=== PATIENT | male | born 1985 | race Caucasian/White ===

== ENCOUNTER → 2017-10-08 16:08 | Outpatient (CLI) | payer OTHER, SELFPAY ==
[2017-10-08 17:44] LABS: Absolute Neutrophil Count 5.7 X10^3/uL (2.0-7.7); Basophil# 0.02 X10^3/uL; Basophil% 0.3 % (0-1); Eosinophil# 0.05 X10^3/uL; Eosinophils% 0.6 % (0-5); Hematocrit 40.5 % (40-54); Hemoglobin 13.7 g/dl (13.0-16.5); Lymphocyte % 19.4 % (19-41); Mean Corp Hgb Conc 33.8 g/gl (32-36); Mean Corpuscular Volume 85.6 fL (80-94); Mean Platelet Vol. 10.8 fl (6.2-12.0); Monocyte# 0.46 X10^3/uL; Neutrophil # 5.69 X10^3/uL (2.7-7.7); Neutrophil % 73.6 % (47-70); POSITIVE COUNT NO; POSITIVE DIFFERENTIAL NO; POSITIVE MORPHOLOGY NO; Platelet Count 253 K/mm3 (150-450); RBC Distribution Width SD 42.9 fl (35.1-43.9); Red Blood Count 4.73 M/mm3 (4.6-6.2); White Blood Count 7.7 K/mm3 (4.4-11.0)
[2017-10-08 18:21] LABS: AST(SGOT) 18 U/L (15-37); Alanine Aminotransfer ALT/SGPT 68 U/L (16-61); Albumin, Serum 3.9 g/dL (3.2-5.0); Alkaline Phosphatase 60 U/L (45-117); Anion Gap 9 (5-15); BUN 16 mg/dL (7-18); BUN/Creat Ratio 24.1 RATIO (10-20); CPK Total, Creatine Kinase 121 U/L (39-308); Calcium,Total 8.9 mg/dL (8.5-10.1); Chloride 104 mmol/L (98-107); Creatinine, Serum 0.66 mg/dL (0.70-1.30); EST Glomerular Filtration Rate 148 mL/min (>60); Est Glom Filt Rate - Afr Amer 179 mL/min (>60); Globulin 3.9 g/dL (2.2-4.2); Glucose 82 mg/dL (74-106); Potassium 3.8 mmol/L (3.5-5.1); Protein, Total 7.8 g/dL (6.4-8.2); Sodium Level 138 mmol/L (136-145)
== END ==
PROVIDERS: Family Provider Family Medicine; PCP Family Medicine; Visit Provider Internal Medicine Rheumatology
DX: M06.4 Inflammatory polyarthropathy (principal); Z79.899 Other long term (current) drug therapy; M33.90 Dermatopolymyositis, unspecified, organ involvement unspecified; M21.40 Flat foot [pes planus] (acquired), unspecified foot; K76.0 Fatty (change of) liver, not elsewhere classified; I10 Essential (primary) hypertension
CPT/HCPCS: 36415; 80053; 82085; 82550; 85025

== ENCOUNTER → 2017-10-22 15:58 | Outpatient (CLI) | payer OTHER, SELFPAY ==
[2017-10-22 17:40] LABS: Absolute Lymphocyte Count 1.68 X10^3/ul (0.83-4.51); Absolute Neutrophil Count 5.4 X10^3/uL (2.0-7.7); Basophil# 0.02 X10^3/uL; Basophil% 0.3 % (0-1); Eosinophil# 0.11 X10^3/uL; Eosinophils% 1.4 % (0-5); Hematocrit 40.4 % (40-54); Hemoglobin 13.3 g/dl (13.0-16.5); Lymphocyte # 1.68 X10^3/ul (4.0); Lymphocyte % 21.6 % (19-41); Mean Corp Hgb Conc 32.9 g/gl (32-36); Mean Corpuscular Hgb 28.6 pg (27.0-32.0); Mean Corpuscular Volume 86.9 fL (80-94); Mean Platelet Vol. 10.3 fl (6.2-12.0); Monocyte# 0.54 X10^3/uL; Monocyte% 6.9 % (0-10); Neutrophil # 5.42 X10^3/uL (2.7-7.7); Neutrophil % 69.5 % (47-70); Platelet Count 230 K/mm3 (150-450); RBC Distribution Width CV 13.4 % (11.6-14.6); RBC Distribution Width SD 41.9 fl (35.1-43.9); Red Blood Count 4.65 M/mm3 (4.6-6.2); White Blood Count 7.8 K/mm3 (4.4-11.0)
[2017-10-22 17:51] LABS: POSITIVE COUNT NO; POSITIVE DIFFERENTIAL NO; POSITIVE MORPHOLOGY NO
[2017-10-22 18:28] LABS: AST(SGOT) 26 U/L (15-37); Alanine Aminotransfer ALT/SGPT 61 U/L (16-61); Albumin, Serum 3.7 g/dL (3.2-5.0); Alkaline Phosphatase 75 U/L (45-117); Anion Gap 6 (5-15); BUN 16 mg/dL (7-18); BUN/Creat Ratio 22.6 RATIO (10-20); CPK Total, Creatine Kinase 123 U/L (39-308); Calcium,Total 8.9 mg/dL (8.5-10.1); Chloride 101 mmol/L (98-107); Creatinine, Serum 0.71 mg/dL (0.70-1.30); EST Glomerular Filtration Rate 137 mL/min (>60); Est Glom Filt Rate - Afr Amer 166 mL/min (>60); Globulin 3.8 g/dL (2.2-4.2); Glucose 75 mg/dL (74-106); Potassium 3.8 mmol/L (3.5-5.1); Protein, Total 7.5 g/dL (6.4-8.2); Sodium Level 136 mmol/L (136-145)
[2017-10-26 11:57] LABS: Aldolase 5.1 U/L (3.3-10.3)
== END ==
PROVIDERS: Family Provider Family Medicine; PCP Family Medicine; Visit Provider Internal Medicine Rheumatology
DX: M06.4 Inflammatory polyarthropathy (principal); Z79.899 Other long term (current) drug therapy; M33.90 Dermatopolymyositis, unspecified, organ involvement unspecified; M21.40 Flat foot [pes planus] (acquired), unspecified foot; K76.0 Fatty (change of) liver, not elsewhere classified; I10 Essential (primary) hypertension
CPT/HCPCS: 36415; 80053; 82085; 82550; 85025

== ENCOUNTER → 2018-01-14 15:58 | Outpatient (CLI) | payer OTHER, SELFPAY ==
[2018-01-14 17:28] LABS: Absolute Lymphocyte Count 1.86 X10^3/ul (0.83-4.51); Absolute Neutrophil Count 5.1 X10^3/uL (2.0-7.7); Basophil# 0.02 X10^3/uL; Basophil% 0.3 % (0-1); Eosinophil# 0.11 X10^3/uL; Eosinophils% 1.4 % (0-5); Hematocrit 40.8 % (40-54); Hemoglobin 13.8 g/dl (13.0-16.5); Lymphocyte # 1.86 X10^3/ul (4.0); Lymphocyte % 24.4 % (19-41); Mean Corp Hgb Conc 33.8 g/gl (32-36); Mean Corpuscular Hgb 28.7 pg (27.0-32.0); Mean Corpuscular Volume 84.8 fL (80-94); Mean Platelet Vol. 10.3 fl (6.2-12.0); Monocyte# 0.47 X10^3/uL; Monocyte% 6.2 % (0-10); Neutrophil # 5.14 X10^3/uL (2.7-7.7); Neutrophil % 67.3 % (47-70); Platelet Count 255 K/mm3 (150-450); RBC Distribution Width CV 14.1 % (11.6-14.6); RBC Distribution Width SD 43.6 fl (35.1-43.9); Red Blood Count 4.81 M/mm3 (4.6-6.2); White Blood Count 7.6 K/mm3 (4.4-11.0)
[2018-01-14 17:29] LABS: POSITIVE COUNT NO; POSITIVE DIFFERENTIAL NO; POSITIVE MORPHOLOGY NO
[2018-01-14 17:56] LABS: ALB/GLOB Ratio 0.8 RATIO (0.9-2.4); AST(SGOT) 22 U/L (15-37); Alanine Aminotransfer ALT/SGPT 50 U/L (16-61); Albumin, Serum 3.8 g/dL (3.2-5.0); Alkaline Phosphatase 94 U/L (45-117); Anion Gap 8 (5-15); BUN 24 mg/dL (7-18); BUN/Creat Ratio 29.9 RATIO (10-20); CPK Total, Creatine Kinase 142 U/L (39-308); Calcium,Total 9.1 mg/dL (8.5-10.1); Chloride 105 mmol/L (98-107); EST Glomerular Filtration Rate 119 mL/min (>60); Est Glom Filt Rate - Afr Amer 144 mL/min (>60); Globulin 4.6 g/dL (2.2-4.2); Glucose 76 mg/dL (74-106); Potassium 3.9 mmol/L (3.5-5.1); Protein, Total 8.4 g/dL (6.4-8.2); Sodium Level 141 mmol/L (136-145)
[2018-01-18 15:12] LABS: Aldolase 5.5 U/L (3.3-10.3)
== END ==
PROVIDERS: Family Provider Family Medicine; PCP Family Medicine; Visit Provider Internal Medicine Rheumatology
DX: M06.4 Inflammatory polyarthropathy (principal); Z79.899 Other long term (current) drug therapy; M33.90 Dermatopolymyositis, unspecified, organ involvement unspecified; M21.40 Flat foot [pes planus] (acquired), unspecified foot; K76.0 Fatty (change of) liver, not elsewhere classified; I10 Essential (primary) hypertension
CPT/HCPCS: 36415; 80053; 82085; 82550; 85025

== ENCOUNTER → 2018-01-19 15:45 | Outpatient (CLI) | payer OTHER, SELFPAY ==
[2018-01-21 16:10] LABS: SJOGREN'S Anti-SS-A test < 0.2 AI (0.0-0.9); SJOGREN'S Anti-SS-B test < 0.2 AI (0.0-0.9)
[2018-01-22 14:21] LABS: Anti-Mitochondrial AB <20.0 Units (0.0-20.0)
== END ==
PROVIDERS: Family Provider Family Medicine; PCP Family Medicine; Visit Provider Internal Medicine Rheumatology
DX: M06.4 Inflammatory polyarthropathy (principal); Z79.899 Other long term (current) drug therapy; M33.90 Dermatopolymyositis, unspecified, organ involvement unspecified; M21.40 Flat foot [pes planus] (acquired), unspecified foot; K76.0 Fatty (change of) liver, not elsewhere classified; I10 Essential (primary) hypertension
CPT/HCPCS: 36415; 83516; 86235

== ENCOUNTER → 2018-02-24 15:47 | Outpatient (CLI) | payer OTHER, SELFPAY ==
[2018-02-24 17:40] LABS: Absolute Lymphocyte Count 1.92 X10^3/ul (0.83-4.51); Absolute Neutrophil Count 5.7 X10^3/uL (2.0-7.7); Basophil# 0.04 X10^3/uL; Basophil% 0.5 % (0-1); Eosinophil# 0.11 X10^3/uL; Eosinophils% 1.3 % (0-5); Hematocrit 42.8 % (40-54); Hemoglobin 14.4 g/dl (13.0-16.5); Lymphocyte # 1.92 X10^3/ul (4.0); Mean Corp Hgb Conc 33.6 g/gl (32-36); Mean Corpuscular Hgb 28.9 pg (27.0-32.0); Mean Corpuscular Volume 85.9 fL (80-94); Mean Platelet Vol. 10.3 fl (6.2-12.0); Monocyte# 0.55 X10^3/uL; Monocyte% 6.6 % (0-10); Neutrophil # 5.66 X10^3/uL (2.7-7.7); Neutrophil % 67.9 % (47-70); Platelet Count 268 K/mm3 (150-450); RBC Distribution Width CV 14.2 % (11.6-14.6); RBC Distribution Width SD 43.5 fl (35.1-43.9); Red Blood Count 4.98 M/mm3 (4.6-6.2); White Blood Count 8.3 K/mm3 (4.4-11.0)
[2018-02-24 17:42] LABS: Differential Indicated SCAN CRITERIA MET; POSITIVE COUNT NO; POSITIVE DIFFERENTIAL NO; POSITIVE MORPHOLOGY YES
[2018-02-24 17:53] LABS: AST(SGOT) 26 U/L (15-37); Alanine Aminotransfer ALT/SGPT 64 U/L (16-61); Albumin, Serum 4.1 g/dL (3.2-5.0); Alkaline Phosphatase 68 U/L (45-117); Anion Gap 9 (5-15); BUN 21 mg/dL (7-18); BUN/Creat Ratio 26.8 RATIO (10-20); CPK Total, Creatine Kinase 140 U/L (39-308); Calcium,Total 9.1 mg/dL (8.5-10.1); Chloride 104 mmol/L (98-107); Creatinine, Serum 0.78 mg/dL (0.70-1.30); EST Glomerular Filtration Rate 122 mL/min (>60); Est Glom Filt Rate - Afr Amer 148 mL/min (>60); Globulin 4.3 g/dL (2.2-4.2); Glucose 82 mg/dL (74-106); Potassium 4.2 mmol/L (3.5-5.1); Protein, Total 8.4 g/dL (6.4-8.2); Sodium Level 139 mmol/L (136-145)
[2018-02-24 18:16] LABS: Atypical Lymphocyte RARE %
[2018-02-28 15:29] LABS: Aldolase 4.7 U/L (3.3-10.3)
== END ==
PROVIDERS: Family Provider Family Medicine; PCP Family Medicine; Visit Provider Internal Medicine Rheumatology
DX: M06.4 Inflammatory polyarthropathy (principal); Z79.899 Other long term (current) drug therapy; M33.90 Dermatopolymyositis, unspecified, organ involvement unspecified; M21.40 Flat foot [pes planus] (acquired), unspecified foot; K76.0 Fatty (change of) liver, not elsewhere classified; I10 Essential (primary) hypertension
CPT/HCPCS: 36415; 80053; 82085; 82550; 85025

== ENCOUNTER → 2018-03-31 16:12 | Outpatient (CLI) | payer OTHER, SELFPAY ==
[2018-03-31 17:45] LABS: Absolute Lymphocyte Count 1.79 X10^3/ul (0.83-4.51); Absolute Neutrophil Count 4.3 X10^3/uL (2.0-7.7); Basophil# 0.01 X10^3/uL; Basophil% 0.2 % (0-1); Eosinophil# 0.11 X10^3/uL; Eosinophils% 1.7 % (0-5); Hemoglobin 13.7 g/dl (13.0-16.5); Lymphocyte # 1.79 X10^3/ul (4.0); Lymphocyte % 26.9 % (19-41); Mean Corp Hgb Conc 33.4 g/gl (32-36); Mean Corpuscular Hgb 28.3 pg (27.0-32.0); Mean Corpuscular Volume 84.7 fL (80-94); Mean Platelet Vol. 10.6 fl (6.2-12.0); Monocyte# 0.42 X10^3/uL; Monocyte% 6.3 % (0-10); Neutrophil % 64.6 % (47-70); Platelet Count 250 K/mm3 (150-450); RBC Distribution Width CV 13.5 % (11.6-14.6); RBC Distribution Width SD 41.5 fl (35.1-43.9); Red Blood Count 4.84 M/mm3 (4.6-6.2); White Blood Count 6.7 K/mm3 (4.4-11.0)
[2018-03-31 17:54] LABS: ALB/GLOB Ratio 0.8 RATIO (0.9-2.4); AST(SGOT) 25 U/L (15-37); Alanine Aminotransfer ALT/SGPT 54 U/L (16-61); Albumin, Serum 3.6 g/dL (3.2-5.0); Alkaline Phosphatase 68 U/L (45-117); Anion Gap 6 (5-15); BUN 21 mg/dL (7-18); BUN/Creat Ratio 26.1 RATIO (10-20); Calcium,Total 9.1 mg/dL (8.5-10.1); Chloride 105 mmol/L (98-107); EST Glomerular Filtration Rate 118 mL/min (>60); Est Glom Filt Rate - Afr Amer 143 mL/min (>60); Globulin 4.6 g/dL (2.2-4.2); Glucose 73 mg/dL (74-106); Potassium 3.9 mmol/L (3.5-5.1); Protein, Total 8.2 g/dL (6.4-8.2); Sodium Level 139 mmol/L (136-145)
[2018-03-31 18:01] LABS: POSITIVE COUNT NO; POSITIVE DIFFERENTIAL NO; POSITIVE MORPHOLOGY NO
== END ==
PROVIDERS: Family Provider Family Medicine; PCP Family Medicine; Visit Provider Internal Medicine Rheumatology
DX: M06.4 Inflammatory polyarthropathy (principal); Z79.899 Other long term (current) drug therapy; M33.90 Dermatopolymyositis, unspecified, organ involvement unspecified; M21.40 Flat foot [pes planus] (acquired), unspecified foot; K76.0 Fatty (change of) liver, not elsewhere classified; I10 Essential (primary) hypertension
CPT/HCPCS: 36415; 80053; 85025

== ENCOUNTER → 2018-06-29 15:50 | Outpatient (CLI) | payer OTHER, SELFPAY ==
[2018-06-29 17:35] LABS: Absolute Lymphocyte Count 1.83 X10^3/ul (0.83-4.51); Absolute Neutrophil Count 5.1 X10^3/uL (2.0-7.7); Basophil# 0.02 X10^3/uL; Basophil% 0.3 % (0-1); Eosinophil# 0.08 X10^3/uL; Hematocrit 42.1 % (40-54); Hemoglobin 14.3 g/dl (13.0-16.5); Lymphocyte # 1.83 X10^3/ul (4.0); Lymphocyte % 23.8 % (19-41); Mean Corpuscular Hgb 28.5 pg (27.0-32.0); Mean Corpuscular Volume 83.9 fL (80-94); Mean Platelet Vol. 10.7 fl (6.2-12.0); Monocyte# 0.64 X10^3/uL; Monocyte% 8.3 % (0-10); Neutrophil % 66.5 % (47-70); Platelet Count 263 K/mm3 (150-450); RBC Distribution Width CV 13.8 % (11.6-14.6); RBC Distribution Width SD 41.5 fl (35.1-43.9); Red Blood Count 5.02 M/mm3 (4.6-6.2); White Blood Count 7.7 K/mm3 (4.4-11.0)
[2018-06-29 18:00] LABS: POSITIVE COUNT NO; POSITIVE DIFFERENTIAL NO; POSITIVE MORPHOLOGY NO
[2018-06-29 18:05] LABS: ALB/GLOB Ratio 0.9 RATIO (0.9-2.4); AST(SGOT) 28 U/L (15-37); Alanine Aminotransfer ALT/SGPT 52 U/L (16-61); Albumin, Serum 4.1 g/dL (3.2-5.0); Alkaline Phosphatase 86 U/L (45-117); Anion Gap 9 (5-15); BUN 15 mg/dL (7-18); BUN/Creat Ratio 16.2 RATIO (10-20); CPK Total, Creatine Kinase 148 U/L (39-308); Calcium,Total 9.3 mg/dL (8.5-10.1); Chloride 99 mmol/L (98-107); Creatinine, Serum 0.93 mg/dL (0.70-1.30); EST Glomerular Filtration Rate 100 mL/min (>60); Est Glom Filt Rate - Afr Amer 121 mL/min (>60); Globulin 4.6 g/dL (2.2-4.2); Glucose 70 mg/dL (74-106); Potassium 4.2 mmol/L (3.5-5.1); Protein, Total 8.7 g/dL (6.4-8.2); Sodium Level 136 mmol/L (136-145)
== END ==
PROVIDERS: Family Provider Family Medicine; PCP Family Medicine; Referring Provider Internal Medicine Rheumatology; Visit Provider Internal Medicine Rheumatology
DX: M06.4 Inflammatory polyarthropathy (principal); Z79.899 Other long term (current) drug therapy; M33.90 Dermatopolymyositis, unspecified, organ involvement unspecified; M21.40 Flat foot [pes planus] (acquired), unspecified foot; K76.0 Fatty (change of) liver, not elsewhere classified; I10 Essential (primary) hypertension
CPT/HCPCS: 36415; 80053; 82550; 85025

== ENCOUNTER → 2018-09-30 13:03 | Outpatient (CLI) | payer OTHER, SELFPAY ==
[2018-09-30 13:53] LABS: Absolute Lymphocyte Count 1.23 X10^3/ul (0.83-4.51); Basophil# 0.01 X10^3/uL; Basophil% 0.1 % (0-1); Eosinophil# 0.09 X10^3/uL; Eosinophils% 1.3 % (0-5); Hematocrit 42.1 % (40-54); Hemoglobin 13.8 g/dl (13.0-16.5); Lymphocyte # 1.23 X10^3/ul (4.0); Lymphocyte % 18.3 % (19-41); Mean Corp Hgb Conc 32.8 g/gl (32-36); Mean Corpuscular Hgb 28.2 pg (27.0-32.0); Mean Corpuscular Volume 86.1 fL (80-94); Mean Platelet Vol. 10.9 fl (6.2-12.0); Monocyte# 0.35 X10^3/uL; Monocyte% 5.2 % (0-10); Neutrophil # 5.01 X10^3/uL (2.7-7.7); Neutrophil % 74.8 % (47-70); Platelet Count 198 K/mm3 (150-450); RBC Distribution Width CV 14.1 % (11.6-14.6); RBC Distribution Width SD 43.8 fl (35.1-43.9); Red Blood Count 4.89 M/mm3 (4.6-6.2); White Blood Count 6.7 K/mm3 (4.4-11.0)
[2018-09-30 13:54] LABS: POSITIVE COUNT NO; POSITIVE DIFFERENTIAL NO; POSITIVE MORPHOLOGY NO
[2018-09-30 14:14] LABS: AST(SGOT) 20 U/L (15-37); Alanine Aminotransfer ALT/SGPT 44 U/L (16-61); Albumin, Serum 3.8 g/dL (3.2-5.0); Alkaline Phosphatase 66 U/L (45-117); Anion Gap 10 (5-15); BUN 21 mg/dL (7-18); BUN/Creat Ratio 29.1 RATIO (10-20); CPK Total, Creatine Kinase 135 U/L (39-308); Calcium,Total 8.7 mg/dL (8.5-10.1); Chloride 109 mmol/L (98-107); Creatinine, Serum 0.72 mg/dL (0.70-1.30); EST Glomerular Filtration Rate 134 mL/min (>60); Est Glom Filt Rate - Afr Amer 162 mL/min (>60); Globulin 3.8 g/dL (2.2-4.2); Glucose 85 mg/dL (74-106); Potassium 4.3 mmol/L (3.5-5.1); Protein, Total 7.6 g/dL (6.4-8.2); Sodium Level 143 mmol/L (136-145)
== END ==
PROVIDERS: Family Provider Family Medicine; PCP Family Medicine; Referring Provider Internal Medicine Rheumatology; Visit Provider Internal Medicine Rheumatology
DX: M06.4 Inflammatory polyarthropathy (principal); Z79.899 Other long term (current) drug therapy; M33.90 Dermatopolymyositis, unspecified, organ involvement unspecified; M21.40 Flat foot [pes planus] (acquired), unspecified foot; K76.0 Fatty (change of) liver, not elsewhere classified; I10 Essential (primary) hypertension
CPT/HCPCS: 36415; 80053; 82550; 85025

== ENCOUNTER → 2019-01-25 | Outpatient (CLI) | payer OTHER, SELFPAY ==
[2019-01-25 10:26] LABS: Absolute Lymphocyte Count 2.45 X10^3/ul (0.83-4.51); Absolute Neutrophil Count 5.9 X10^3/uL (2.0-7.7); Basophil# 0.01 X10^3/uL; Basophil% 0.1 % (0-1); Eosinophil# 0.14 X10^3/uL; Eosinophils% 1.5 % (0-5); Hematocrit 40.8 % (40-54); Hemoglobin 13.6 g/dl (13.0-16.5); Lymphocyte # 2.45 X10^3/ul (4.0); Mean Corp Hgb Conc 33.3 g/gl (32-36); Mean Corpuscular Hgb 27.7 pg (27.0-32.0); Mean Corpuscular Volume 83.1 fL (80-94); Monocyte% 5.5 % (0-10); Neutrophil # 5.94 X10^3/uL (2.7-7.7); Neutrophil % 65.6 % (47-70); Platelet Count 253 K/mm3 (150-450); RBC Distribution Width CV 13.8 % (11.6-14.6); RBC Distribution Width SD 40.9 fl (35.1-43.9); Red Blood Count 4.91 M/mm3 (4.6-6.2); White Blood Count 9.1 K/mm3 (4.4-11.0)
[2019-01-25 10:27] LABS: POSITIVE COUNT NO; POSITIVE DIFFERENTIAL NO; POSITIVE MORPHOLOGY NO
[2019-01-25 10:50] LABS: AST(SGOT) 22 U/L (15-37); Alanine Aminotransfer ALT/SGPT 39 U/L (16-61); Alkaline Phosphatase 77 U/L (45-117); Anion Gap 6 (5-15); BUN 20 mg/dL (7-18); BUN/Creat Ratio 24.4 RATIO (10-20); CPK Total, Creatine Kinase 202 U/L (39-308); Calcium,Total 9.2 mg/dL (8.5-10.1); Chloride 103 mmol/L (98-107); Creatinine, Serum 0.82 mg/dL (0.70-1.30); EST Glomerular Filtration Rate 115 mL/min (>60); Est Glom Filt Rate - Afr Amer 139 mL/min (>60); Globulin 4.2 g/dL (2.2-4.2); Glucose 66 mg/dL (74-106); Potassium 3.6 mmol/L (3.5-5.1); Protein, Total 8.2 g/dL (6.4-8.2); Sodium Level 136 mmol/L (136-145)
== END | disposition home or self-care (01) ==
LOC: MTLAB 07:06
PROVIDERS: Family Provider Family Medicine; PCP Family Medicine; Referring Provider Internal Medicine Rheumatology; Visit Provider Internal Medicine Rheumatology
DX: M06.4 Inflammatory polyarthropathy (principal); Z79.899 Other long term (current) drug therapy; M33.90 Dermatopolymyositis, unspecified, organ involvement unspecified; M21.40 Flat foot [pes planus] (acquired), unspecified foot; K76.0 Fatty (change of) liver, not elsewhere classified; I10 Essential (primary) hypertension
CPT/HCPCS: 36415; 80053; 82550; 85025

== ENCOUNTER → 2019-05-25 16:12 | Outpatient (CLI) | payer OTHER, SELFPAY ==
[2019-05-25 17:27] LABS: Absolute Lymphocyte Count 1.84 X10^3/uL (0.83-4.51); Absolute Neutrophil Count 4.6 X10^3/uL (2.0-7.7); Basophil# 0.03 X10^3/uL; Basophil% 0.4 % (0-1); Eosinophil# 0.12 X10^3/uL; Eosinophils% 1.7 % (0-5); Hemoglobin 13.6 g/dL (13.0-16.5); Lymphocyte # 1.84 X10^3/ul (4.0); Mean Corp Hgb Conc 32.4 g/dL (32-36); Mean Corpuscular Hgb 27.7 pg (27.0-32.0); Mean Corpuscular Volume 85.5 fL (80-94); Mean Platelet Vol. 10.7 fl (6.2-12.0); Monocyte# 0.48 X10^3/uL; Monocyte% 6.8 % (0-10); NRBC Flagged by Analyzer 0 % (0-5); Neutrophil # 4.59 X10^3/uL (2.7-7.7); Neutrophil % 64.8 % (47-70); Platelet Count 199 K/mm3 (150-450); RBC Distribution Width SD 43.3 fl (35.1-43.9); Red Blood Count 4.91 M/mm3 (4.6-6.2); White Blood Count 7.1 K/mm3 (4.4-11.0)
[2019-05-25 17:41] LABS: AST(SGOT) 18 U/L (15-37); Alanine Aminotransfer ALT/SGPT 44 U/L (16-61); Albumin, Serum 3.9 g/dL (3.2-5.0); Alkaline Phosphatase 60 U/L (45-117); Anion Gap 7 (5-15); BUN 16 mg/dL (7-18); BUN/Creat Ratio 20.9 RATIO (10-20); CPK Total, Creatine Kinase 120 U/L (39-308); Calcium,Total 8.8 mg/dL (8.5-10.1); Chloride 106 mmol/L (98-107); Creatinine, Serum 0.77 mg/dL (0.70-1.30); EST Glomerular Filtration Rate 124 mL/min (>60); Est Glom Filt Rate - Afr Amer 150 mL/min (>60); Globulin 3.8 g/dL (2.2-4.2); Glucose 93 mg/dL (74-106); Potassium 3.6 mmol/L (3.5-5.1); Protein, Total 7.7 g/dL (6.4-8.2); Sodium Level 140 mmol/L (136-145)
== END ==
PROVIDERS: Family Provider Family Medicine; PCP Family Medicine; Referring Provider Internal Medicine Rheumatology; Visit Provider Internal Medicine Rheumatology
DX: M06.4 Inflammatory polyarthropathy (principal); Z79.899 Other long term (current) drug therapy; M33.90 Dermatopolymyositis, unspecified, organ involvement unspecified; M21.40 Flat foot [pes planus] (acquired), unspecified foot; K76.0 Fatty (change of) liver, not elsewhere classified; I10 Essential (primary) hypertension
CPT/HCPCS: 36415; 80053; 82550; 85025

== ENCOUNTER → 2019-09-01 10:30 | Outpatient (CLI) | payer OTHER, SELFPAY ==
[2019-09-01 12:41] LABS: Absolute Lymphocyte Count 2.87 X10^3/uL (0.83-4.51); Absolute Neutrophil Count 7.4 X10^3/uL (2.0-7.7); Basophil# 0.04 X10^3/uL; Basophil% 0.4 % (0-1); Eosinophil# 0.11 X10^3/uL; Hematocrit 42.9 % (40-54); Hemoglobin 14.1 g/dL (13.0-16.5); Lymphocyte # 2.87 X10^3/ul (4.0); Lymphocyte % 25.7 % (19-41); Mean Corp Hgb Conc 32.9 g/dL (32-36); Mean Corpuscular Hgb 28.1 pg (27.0-32.0); Mean Corpuscular Volume 85.6 fL (80-94); Mean Platelet Vol. 10.3 fl (6.2-12.0); Monocyte# 0.68 X10^3/uL; Monocyte% 6.1 % (0-10); NRBC Flagged by Analyzer 0 % (0-5); Neutrophil % 66.2 % (47-70); Platelet Count 273 K/mm3 (150-450); RBC Distribution Width CV 13.6 % (11.6-14.6); RBC Distribution Width SD 41.9 fl (35.1-43.9); Red Blood Count 5.01 M/mm3 (4.6-6.2); White Blood Count 11.2 K/mm3 (4.4-11.0)
[2019-09-01 12:58] LABS: ALB/GLOB Ratio 0.9 RATIO (0.9-2.4); AST(SGOT) 20 U/L (15-37); Alanine Aminotransfer ALT/SGPT 55 U/L (16-61); Albumin, Serum 4.1 g/dL (3.2-5.0); Alkaline Phosphatase 76 U/L (45-117); Anion Gap 6 (5-15); BUN 25 mg/dL (7-18); BUN/Creat Ratio 28.8 RATIO (10-20); CPK Total, Creatine Kinase 118 U/L (39-308); Calcium,Total 9.5 mg/dL (8.5-10.1); Chloride 109 mmol/L (98-107); Creatinine, Serum 0.87 mg/dL (0.70-1.30); EST Glomerular Filtration Rate 107 mL/min (>60); Est Glom Filt Rate - Afr Amer 130 mL/min (>60); Globulin 4.5 g/dL (2.2-4.2); Glucose 81 mg/dL (74-106); Potassium 3.8 mmol/L (3.5-5.1); Protein, Total 8.6 g/dL (6.4-8.2); Sodium Level 139 mmol/L (136-145)
== END ==
PROVIDERS: Family Provider Family Medicine; PCP Family Medicine; Referring Provider Internal Medicine Rheumatology; Visit Provider Internal Medicine Rheumatology
DX: I10 Essential (primary) hypertension (principal); M06.4 Inflammatory polyarthropathy; M33.90 Dermatopolymyositis, unspecified, organ involvement unspecified; M21.40 Flat foot [pes planus] (acquired), unspecified foot; K76.0 Fatty (change of) liver, not elsewhere classified; L40.59 Other psoriatic arthropathy; Z79.899 Other long term (current) drug therapy
CPT/HCPCS: 36415; 80053; 82550; 85025

== ENCOUNTER → 2019-11-27 07:06 | Outpatient (CLI) | payer OTHER, SELFPAY ==
[2019-11-27 09:51] LABS: Absolute Lymphocyte Count 2.96 X10^3/uL (0.83-4.51); Absolute Neutrophil Count 5.9 X10^3/uL (2.0-7.7); Basophil# 0.04 X10^3/uL; Basophil% 0.4 % (0-1); Eosinophil# 0.12 X10^3/uL; Eosinophils% 1.3 % (0-5); Hematocrit 42.3 % (40-54); Lymphocyte # 2.96 X10^3/ul (4.0); Mean Corp Hgb Conc 33.1 g/dL (32-36); Mean Corpuscular Hgb 27.9 pg (27.0-32.0); Mean Corpuscular Volume 84.3 fL (80-94); Mean Platelet Vol. 10.7 fl (6.2-12.0); Monocyte# 0.54 X10^3/uL; Monocyte% 5.6 % (0-10); NRBC Flagged by Analyzer 0 % (0-5); Neutrophil # 5.86 X10^3/uL (2.7-7.7); Neutrophil % 61.3 % (47-70); Platelet Count 255 K/mm3 (150-450); RBC Distribution Width CV 13.3 % (11.6-14.6); RBC Distribution Width SD 40.8 fl (35.1-43.9); Red Blood Count 5.02 M/mm3 (4.6-6.2); White Blood Count 9.6 K/mm3 (4.4-11.0)
[2019-11-27 10:15] LABS: ALB/GLOB Ratio 0.9 RATIO (0.9-2.4); AST(SGOT) 36 U/L (15-37); Alanine Aminotransfer ALT/SGPT 85 U/L (16-61); Albumin, Serum 3.8 g/dL (3.2-5.0); Alkaline Phosphatase 76 U/L (45-117); Anion Gap 9 (5-15); BUN 15 mg/dL (7-18); BUN/Creat Ratio 18.2 RATIO (10-20); CPK Total, Creatine Kinase 126 U/L (39-308); Calcium,Total 8.9 mg/dL (8.5-10.1); Chloride 103 mmol/L (98-107); Creatinine, Serum 0.82 mg/dL (0.70-1.30); EST Glomerular Filtration Rate 114 mL/min (>60); Est Glom Filt Rate - Afr Amer 138 mL/min (>60); Globulin 4.3 g/dL (2.2-4.2); Glucose 71 mg/dL (74-106); Potassium 3.6 mmol/L (3.5-5.1); Protein, Total 8.1 g/dL (6.4-8.2); Sodium Level 137 mmol/L (136-145)
== END ==
PROVIDERS: PCP Family Medicine; Referring Provider Internal Medicine Rheumatology; Visit Provider Internal Medicine Rheumatology
DX: M06.4 Inflammatory polyarthropathy (principal); Z79.899 Other long term (current) drug therapy; M33.90 Dermatopolymyositis, unspecified, organ involvement unspecified; M21.40 Flat foot [pes planus] (acquired), unspecified foot; K76.0 Fatty (change of) liver, not elsewhere classified; I10 Essential (primary) hypertension; L40.59 Other psoriatic arthropathy
CPT/HCPCS: 36415; 80053; 82550; 85025

== ENCOUNTER → 2020-01-17 07:20 | Outpatient (CLI) | payer OTHER, SELFPAY ==
[2020-01-17 10:05] LABS: Absolute Lymphocyte Count 2.76 X10^3/uL (0.83-4.51); Absolute Neutrophil Count 6.1 X10^3/uL (2.0-7.7); Basophil# 0.04 X10^3/uL; Basophil% 0.4 % (0-1); Eosinophil# 0.14 X10^3/uL; Eosinophils% 1.4 % (0-5); Hematocrit 41.8 % (40-54); Hemoglobin 13.7 g/dL (13.0-16.5); Lymphocyte # 2.76 X10^3/ul (4.0); Lymphocyte % 28.1 % (19-41); Mean Corp Hgb Conc 32.8 g/dL (32-36); Mean Corpuscular Hgb 28.1 pg (27.0-32.0); Mean Corpuscular Volume 85.8 fL (80-94); Mean Platelet Vol. 10.2 fl (6.2-12.0); Monocyte% 7.1 % (0-10); NRBC Flagged by Analyzer 0 % (0-5); Neutrophil # 6.14 X10^3/uL (2.7-7.7); Neutrophil % 62.6 % (47-70); Platelet Count 281 K/mm3 (150-450); RBC Distribution Width CV 13.3 % (11.6-14.6); Red Blood Count 4.87 M/mm3 (4.6-6.2); White Blood Count 9.8 K/mm3 (4.4-11.0)
[2020-01-17 10:21] LABS: ALB/GLOB Ratio 0.9 RATIO (0.9-2.4); AST(SGOT) 27 U/L (15-37); Alanine Aminotransfer ALT/SGPT 77 U/L (16-61); Albumin, Serum 3.8 g/dL (3.2-5.0); Alkaline Phosphatase 78 U/L (45-117); Anion Gap 8 (5-15); BUN 21 mg/dL (7-18); BUN/Creat Ratio 24.2 RATIO (10-20); CPK Total, Creatine Kinase 179 U/L (39-308); Calcium,Total 9.1 mg/dL (8.5-10.1); Chloride 107 mmol/L (98-107); Creatinine, Serum 0.87 mg/dL (0.70-1.30); EST Glomerular Filtration Rate 107 mL/min (>60); Est Glom Filt Rate - Afr Amer 130 mL/min (>60); Globulin 4.3 g/dL (2.2-4.2); Glucose 80 mg/dL (74-106); Potassium 3.9 mmol/L (3.5-5.1); Protein, Total 8.1 g/dL (6.4-8.2); Sodium Level 141 mmol/L (136-145)
== END ==
PROVIDERS: PCP Family Medicine; Referring Provider Internal Medicine Rheumatology; Visit Provider Internal Medicine Rheumatology
DX: M06.4 Inflammatory polyarthropathy (principal); Z79.899 Other long term (current) drug therapy; M33.90 Dermatopolymyositis, unspecified, organ involvement unspecified; M21.40 Flat foot [pes planus] (acquired), unspecified foot; K76.0 Fatty (change of) liver, not elsewhere classified; I10 Essential (primary) hypertension; L40.59 Other psoriatic arthropathy
CPT/HCPCS: 36415; 80053; 82550; 85025

== ENCOUNTER → 2020-02-09 07:01 | Outpatient (CLI) | payer OTHER, SELFPAY ==
[2020-02-09 10:08] LABS: Absolute Lymphocyte Count 2.45 X10^3/uL (0.83-4.51); Absolute Neutrophil Count 5.7 X10^3/uL (2.0-7.7); Basophil# 0.03 X10^3/uL; Basophil% 0.3 % (0-1); Eosinophil# 0.17 X10^3/uL; Eosinophils% 1.9 % (0-5); Hematocrit 41.3 % (40-54); Hemoglobin 13.4 g/dL (13.0-16.5); Lymphocyte # 2.45 X10^3/ul (4.0); Lymphocyte % 27.7 % (19-41); Mean Corp Hgb Conc 32.4 g/dL (32-36); Mean Corpuscular Hgb 28.3 pg (27.0-32.0); Mean Corpuscular Volume 87.1 fL (80-94); Mean Platelet Vol. 10.9 fl (6.2-12.0); Monocyte# 0.42 X10^3/uL; Monocyte% 4.7 % (0-10); NRBC Flagged by Analyzer 0 % (0-5); Neutrophil # 5.73 X10^3/uL (2.7-7.7); Neutrophil % 64.7 % (47-70); Platelet Count 246 K/mm3 (150-450); RBC Distribution Width CV 13.2 % (11.6-14.6); RBC Distribution Width SD 41.1 fl (35.1-43.9); Red Blood Count 4.74 M/mm3 (4.6-6.2); White Blood Count 8.9 K/mm3 (4.4-11.0)
[2020-02-09 10:37] LABS: ALB/GLOB Ratio 0.8 RATIO (0.9-2.4); AST(SGOT) 26 U/L (15-37); Alanine Aminotransfer ALT/SGPT 85 U/L (16-61); Albumin, Serum 3.6 g/dL (3.2-5.0); Alkaline Phosphatase 76 U/L (45-117); Anion Gap 6 (5-15); BUN 18 mg/dL (7-18); BUN/Creat Ratio 22.9 RATIO (10-20); CPK Total, Creatine Kinase 151 U/L (39-308); Chloride 106 mmol/L (98-107); Creatinine, Serum 0.79 mg/dL (0.70-1.30); EST Glomerular Filtration Rate 120 mL/min (>60); Est Glom Filt Rate - Afr Amer 145 mL/min (>60); Globulin 4.3 g/dL (2.2-4.2); Glucose 73 mg/dL (74-106); Potassium 3.9 mmol/L (3.5-5.1); Protein, Total 7.9 g/dL (6.4-8.2); Sodium Level 139 mmol/L (136-145)
== END ==
PROVIDERS: PCP Family Medicine; Referring Provider Internal Medicine Rheumatology; Visit Provider Internal Medicine Rheumatology
DX: M06.4 Inflammatory polyarthropathy (principal); M33.90 Dermatopolymyositis, unspecified, organ involvement unspecified; M21.40 Flat foot [pes planus] (acquired), unspecified foot; K76.0 Fatty (change of) liver, not elsewhere classified; I10 Essential (primary) hypertension; L40.59 Other psoriatic arthropathy; Z79.899 Other long term (current) drug therapy
CPT/HCPCS: 36415; 80053; 82550; 85025

== ENCOUNTER → 2020-03-11 07:07 | Outpatient (CLI) | payer OTHER, SELFPAY ==
[2020-03-11 10:55] LABS: ALB/GLOB Ratio 0.9 RATIO (0.9-2.4); AST(SGOT) 31 U/L (15-37); Alanine Aminotransfer ALT/SGPT 75 U/L (16-61); Albumin, Serum 3.8 g/dL (3.2-5.0); Alkaline Phosphatase 76 U/L (45-117); Anion Gap 6 (5-15); BUN 15 mg/dL (7-18); BUN/Creat Ratio 18.1 RATIO (10-20); CPK Total, Creatine Kinase 158 U/L (39-308); Calcium,Total 8.9 mg/dL (8.5-10.1); Chloride 108 mmol/L (98-107); Creatinine, Serum 0.83 mg/dL (0.70-1.30); EST Glomerular Filtration Rate 113 mL/min (>60); Est Glom Filt Rate - Afr Amer 137 mL/min (>60); Globulin 4.2 g/dL (2.2-4.2); Glucose 78 mg/dL (74-106); Potassium 3.6 mmol/L (3.5-5.1); Sodium Level 140 mmol/L (136-145)
== END ==
PROVIDERS: PCP Family Medicine; Referring Provider Internal Medicine Rheumatology; Visit Provider Internal Medicine Rheumatology
DX: M06.4 Inflammatory polyarthropathy (principal); Z79.899 Other long term (current) drug therapy; M33.90 Dermatopolymyositis, unspecified, organ involvement unspecified; L40.59 Other psoriatic arthropathy; L40.8 Other psoriasis; M21.40 Flat foot [pes planus] (acquired), unspecified foot; K76.0 Fatty (change of) liver, not elsewhere classified; I10 Essential (primary) hypertension
CPT/HCPCS: 36415; 80053; 82550

== ENCOUNTER → 2020-09-27 09:32 | Outpatient (CLI) | payer OTHER, SELFPAY ==
[2020-09-27 12:11] LABS: Absolute Lymphocyte Count 1.96 X10^3/uL (0.83-4.51); Absolute Neutrophil Count 3.9 X10^3/uL (2.0-7.7); Basophil# 0.03 X10^3/uL; Basophil% 0.5 % (0-1); Eosinophils% 1.5 % (0-5); Hematocrit 43.1 % (40-54); Hemoglobin 14.1 g/dL (13.0-16.5); Lymphocyte # 1.96 X10^3/ul (4.0); Lymphocyte % 30.3 % (19-41); Mean Corp Hgb Conc 32.7 g/dL (32-36); Mean Corpuscular Volume 82.4 fL (80-94); Mean Platelet Vol. 11.5 fl (6.2-12.0); Monocyte# 0.43 X10^3/uL; Monocyte% 6.7 % (0-10); NRBC Flagged by Analyzer 0 % (0-5); Neutrophil # 3.91 X10^3/uL (2.7-7.7); Neutrophil % 60.5 % (47-70); Platelet Count 241 K/mm3 (150-450); RBC Distribution Width CV 14.4 % (11.6-14.6); RBC Distribution Width SD 42.6 fl (35.1-43.9); Red Blood Count 5.23 M/mm3 (4.6-6.2); White Blood Count 6.5 K/mm3 (4.4-11.0)
[2020-09-27 12:36] LABS: AST(SGOT) 18 U/L (15-37); Alanine Aminotransfer ALT/SGPT 35 U/L (16-61); Albumin, Serum 3.7 g/dL (3.2-5.0); Alkaline Phosphatase 99 U/L (45-117); Anion Gap 9 (5-15); BUN 20 mg/dL (7-18); Bilirubin, Direct 0.07 mg/dL (0.00-0.30); Calcium,Total 9.2 mg/dL (8.5-10.1); Chloride 106 mmol/L (98-107); Creatinine, Serum 0.72 mg/dL (0.70-1.30); EST Glomerular Filtration Rate 133 mL/min (>60); Est Glom Filt Rate - Afr Amer 161 mL/min (>60); Globulin 4.1 g/dL (2.2-4.2); Glucose 77 mg/dL (74-106); Potassium 3.4 mmol/L (3.5-5.1); Protein, Total 7.8 g/dL (6.4-8.2); Sodium Level 137 mmol/L (136-145)
[2020-09-27 13:04] LABS: Hepatitis B Surface Antibody Reactive; Hepatitis B Surface Antigen Non-Reactive (Nonreactive); Hepatitis C Antibody Non-Reactive (Nonreactive)
[2020-10-02 20:07] LABS: QNTFERON TB Mitogen Value > 10.00 IU/mL (.); QNTFERON TB Nil Value 0.04 IU/mL (.); QNTFERON TB1+ Ag Value 0.13 IU/mL (.); QNTFERON TB2+ Ag Value 0.05 IU/mL (.)
[2020-10-02 20:15] LABS: Hepatitis B Core AB IgM Negative (Negative); QNTIFERON TB Positive Criteria Negative (Negative)
== END ==
LOC: MTLAB 09:34
PROVIDERS: PCP Family Medicine; Referring Provider Physician Assistant; Visit Provider Physician Assistant
DX: M33.10 Other dermatomyositis, organ involvement unspecified (principal); L40.0 Psoriasis vulgaris; Z79.899 Other long term (current) drug therapy
CPT/HCPCS: 36415; 80048; 80076; 85025; 86480; 86705; 86706; 86803; 87340

== ENCOUNTER → 2022-04-06 | Outpatient (CLI) | payer OTHER, SELFPAY ==
[2022-04-09 20:07] LABS: QNTFERON TB Mitogen Value > 10.00 IU/mL (.); QNTFERON TB Nil Value 0.05 IU/mL (.); QNTFERON TB1+ Ag Value 0.05 IU/mL (.); QNTFERON TB2+ Ag Value 0.06 IU/mL (.)
[2022-04-10 11:41] LABS: Hepatitis B Core Ab Total Negative (Negative); QNTIFERON TB Positive Criteria Negative (Negative)
== END | disposition home or self-care (01) ==
LOC: MTLAB 10:25
PROVIDERS: PCP Family Medicine; Referring Provider Physician Assistant Medical; Visit Provider Physician Assistant Medical
DX: L40.0 Psoriasis vulgaris (principal); L40.59 Other psoriatic arthropathy; Z79.899 Other long term (current) drug therapy
CPT/HCPCS: 36415; 86480; 86704

== ENCOUNTER → 2023-04-30 | Outpatient (CLI) | payer OTHER, SELFPAY ==
[2023-04-30 12:15] LABS: Absolute Lymphocyte Count 2.19 X10^3/uL (0.83-4.51); Absolute Neutrophil Count 3.1 X10^3/uL (2.0-7.7); Basophil# 0.02 X10^3/uL; Basophil% 0.3 % (0-1); Eosinophil# 0.13 X10^3/uL; Eosinophils% 2.2 % (0-5); Hematocrit 43.2 % (40-54); Hemoglobin 14.1 g/dL (13.0-16.5); Lymphocyte # 2.19 X10^3/ul (0.83-4.51); Lymphocyte % 37.8 % (19-41); Mean Corp Hgb Conc 32.6 g/dL (32-36); Mean Corpuscular Hgb 27.4 pg (27.0-32.0); Mean Platelet Vol. 10.4 fl (6.2-12.0); Monocyte# 0.38 X10^3/uL; Monocyte% 6.6 % (0-10); NRBC Flagged by Analyzer 0 % (0-5); Neutrophil # 3.06 X10^3/uL (2.7-7.7); Neutrophil % 52.8 % (47-70); Platelet Count 203 K/mm3 (150-450); RBC Distribution Width CV 12.6 % (11.6-14.6); RBC Distribution Width SD 38.1 fl (35.1-43.9); Red Blood Count 5.14 M/mm3 (4.6-6.2); White Blood Count 5.8 K/mm3 (4.4-11.0)
[2023-04-30 13:08] LABS: ALB/GLOB Ratio 0.9 RATIO (0.9-2.4); AST(SGOT) 14 U/L (15-37); Alanine Aminotransfer ALT/SGPT 31 U/L (16-61); Albumin, Serum 3.7 g/dL (3.2-5.0); Alkaline Phosphatase 64 U/L (45-117); Anion Gap 6 (5-15); BUN 17 mg/dL (7-18); BUN/Creat Ratio 25.7 RATIO (10-20); Calcium,Total 8.9 mg/dL (8.5-10.1); Chloride 106 mmol/L (98-107); Cholesterol 137 mg/dL (200); Creatinine, Serum 0.66 mg/dL (0.70-1.30); EST Glomerular Filtration Rate 144 mL/min (>60); Est Glom Filt Rate - Afr Amer 174 mL/min (>60); Globulin 3.9 g/dL (2.2-4.2); Glucose 83 mg/dL (74-106); High Density Lipoprotein 42 mg/dL; Potassium 3.8 mmol/L (3.5-5.1); Protein, Total 7.6 g/dL (6.4-8.2); Sodium Level 137 mmol/L (136-145); Triglycerides 102 mg/dL; Very Low Density Lipoprotein 20 mg/dL (5-40)
== END | disposition home or self-care (01) ==
LOC: MTLAB 11:15
PROVIDERS: PCP Family Medicine; Referring Provider Family Medicine; Visit Provider Family Medicine
DX: Z00.00 Encounter for general adult medical examination without abnormal findings (principal); Z13.1 Encounter for screening for diabetes mellitus; Z13.220 Encounter for screening for lipoid disorders
CPT/HCPCS: 36415; 80053; 80061; 85025

== ENCOUNTER → 2023-09-02 | Outpatient (CLI) | payer OTHER, SELFPAY ==
--- OUTSIDE RECORDS SUMMARY | 2023-09-02 16:14 | XMS RPT_ITS | CCD ---
Author Name Unknown Address [address] [place] [address] Organization [facility] Care Team Providers Care Business Office Technician Name Role Phone RK, WINTER A Unavailable Unavailable RK, WINTER A Unavailable Unavailable FEASEL, CHARLINE A Unavailable Unavailable RK, WINTER A Unavailable Unavailable Ungvarsky, Arnie Unavailable Unavailable Brown, Nancy Unavailable Unavailable MAST, ABRAHAN Unavailable Unavailable RK, WINTER A Unavailable Unavailable RK, WINTER A Unavailable Unavailable SELF, SELF Unavailable Unavailable RK, WINTER A Unavailable Unavailable RK, WINTER A Unavailable Unavailable MANI, SOLA L Unavailable Unavailable KELLY, VERONA Unavailable Unavailable RK, WINTER A Unavailable Unavailable RK, WINTER A Unavailable Unavailable RK, WINTER A Unavailable Unavailable RK, WINTER A Unavailable Unavailable SABAS, LANNETTE Unavailable Unavailable RK, WINTER A Unavailable Unavailable SABAS, LANNETTE Unavailable Unavailable YING, BRYAN A Unavailable Unavailable SABAS, LANNETTE Unavailable Unavailable YNIG, BRYAN A Unavailable Unavailable SABAS, LANNETTE Unavailable Unavailable RK, WINTER A Unavailable Unavailable RK, WINTER A Unavailable Unavailable YING, BRYAN A Unavailable Unavailable RK, WINTER A Unavailable Unavailable KELLY, VERONA Unavailable Unavailable SELF, SELF Unavailable Unavailable Brewer, Kinga Unavailable Unavailable PROVIDER, UNKNOWN Unavailable Unavailable Arden Jorgensen Unavailable Unavailable Brewer, Kinga Unavailable Unavailable PROVIDER, UNKNOWN Unavailable Unavailable Arden Jorgensen Unavailable Unavailable Sola Singleton Attending Unavailable Rc Orta Primary Care Unavailable Sola Singleton Admitting Unavailable James Choudhurystantinos Attending Unavailabl e Rc Orta Primary Care Unavailable Macey, Nazario Admitting Unavailabl e Sola Singleton Attending Unavailable Rc Orta Primary Care Unavailable Sola Singleton Admitting Unavailable Sola Singleton Unavailable Unavailable Rc Orta Unavailable Unavailable Ngoc Raymond Unavailable Unavailable Nancy Honeycutt Unavailable Unavailable Sola Singleton Unavailable Unavailable Hailemichelle, Zoe Nag Unavailable Unavailab le EdmundotravZoe Nag S Unavailable Unavailable Unavailable Julieth DRAKE MPH, Zoe Noyola Primary Care Pro vider Julieth DRAKE MPH, Zoe Hinds S Unavailable JULIETH, ZOE NAG S Primary Care Unavail able NASEEM LOVETT Attending Unavailable MALLFEDERICO, ZOE NAG S Primary Care Unavail able ZOE CLANCY NAG S Attending Unavail able JULIETH ZOE NAG S Primary Care Unavail able Allergies Allergy Classification Reported Allergen(s) Allergy Type Date of Onset Reaction(s) Facility (3 sources) cefdinir; Translations: [CEFDINIR] [facility] sources[facility] cefdinir; Translations: [Omnicef] Drug Allergy [facility] Repository (3 sources) cefdinir Drug Allergy 06-17-2017 [facility] Medications Current Medications Medication Drug Class(es) Dates Sig (Normalized) Sig (Original) amoxicillin 500 mg oral capsule (1 source) Penicillin-class Antibacterial Start: 08-02-2023 End: 08-12-2023 take 1 capsule by mouth twice daily at mealtime amoxicillin (Amoxil) 500 mg capsule Indications: Acute otitis media, unspecified otitis media type Take 1 capsule (500 mg) by mouth 2 times a day with meals for 10 days. 20 capsule 0 08/02/2023 08/12/2023 Active cholecalciferol 1.25 mg oral capsule (3 sources) Vitamin D Start: 02-03-2018 take 1 capsule by mouth every week cholecalciferol (Vitamin D-3) 1,250 mcg (50,000 unit) capsule Take 1 capsule (50,000 Units) by mouth once a week. 0 02/03/2018 Active semaglutide (OZEMPIC) 1 mg/dose (4 mg/3 mL) pen injector (1 source) Start: 10-28-2023 semaglutide (OZEMPIC) 1 mg/dose (4 mg/3 mL) pen injector Indications: Class 3 severe obesity due to excess calories with body mass index (BMI) of 45.0 to 49.9 in adult, unspecified whether serious comorbidity present (CMS/HCC) Inject 1 mg under the skin 1 (one) time per week. Do not start before October 28, 2023. 3 mL 0 10/28/2023 Active semaglutide 0.25 mg or 0.5 mg (2 mg/3 mL) pen injector (1 source) Start: 08-30-2023 End: 10-29-2023 inject 0.25 mg by subcutaneous injection every week, then inject 0.5 mg by subcutaneous injection every week semaglutide 0.25 mg or 0.5 mg (2 mg/3 mL) pen injector Indications: Class 3 severe obesity due to excess calories with body mass index (BMI) of 45.0 to 49.9 in adult, unspecified whether serious comorbidity present (CMS/HCC) Inject 0.25 mg under the skin 1 (one) time per week for 30 days, THEN 0.5 mg 1 (one) time per week. 3 mL 1 08/30/2023 10/29/2023 Active Skyrizi 150 mg/mL syringe (3 sources) Start: 11-05-2022 Skyrizi 150 mg/mL syringe 150 mL (22,500 mg) by abdominal subcutaneous route every 3 months. 0 11/05/2022 Active Completed/Discontinued Medications Medication Drug Class(es) Dates Sig (Normalized) Sig (Original) amoxicillin 875 mg / clavulanate 125 mg oral tablet (1 source) Penicillin-class Antibacterial Start: 10-07-2020 take 1 tablet by mouth once daily Amoxicillin-Pot Clavulanate 875-125 MG Oral Tablet TAKE 1 TABLET EVERY 12 HOURS DAILY. Quantity: 14 Refills: 0 Julieth DRAKE, MPH, Zoe [facility] Start : 07-Oct-2020 Active apremilast 30 mg oral tablet (2 sources) Otezla 30 MG Ora l Tablet Refills: 0 Active Problems Active Problems Problem Classification Problem Date Documented Date Episodic/Chronic Calculus of urinary tract (1 source) Kidney stone; Translations: [Kidney stone] Episodic Esophageal disorders (2 sources) Gastro-esophageal reflux disease without esophagitis; Translations: [Gastro-esophageal reflux disease without esophagitis] Onset: 01-07-2018 Chronic Essential hypertension (9 sources) Essential (primary) hypertension; Translations: [Hypertensive disorder] Onset: 06-21-2017 Chronic Genitourinary symptoms and ill-defined conditions (1 source) Microscopic hematuria; Translations: [Other microscopic hematuria] Episodic Headache; including migraine (9 sources) Migraine; Translations: [Migraine, unspecified, without mention of intractable migraine without mention of status migrainosus] Onset: 12-25-2022 12-25-2022 Chronic Immunizations and screening for infectious disease (6 sources) Patient encounter status; Translations: [Other specified vaccination] Episodic Mood disorders (2 sources) Major depressive disorder, recurrent, moderate; Translations: [Major depressive disorder, recurrent, moderate] Onset: 03-04-2018 Chronic Osteoarthritis (2 sources) Unspecified osteoarthritis, unspecified site; Translations: [Unspecified osteoarthritis, unspecified site] Onset: 06-21-2017 Chronic Other diseases of kidney and ureters (3 sources) Cyst of kidney; Translations: [Cystic kidney disease, unspecified] Episodic Other endocrine disorders (1 source) Hypoglycemia; Translations: [Hypoglycemia, unspecified] Chronic Other liver diseases (2 sources) Fatty (change of) liver, not elsewhere classified; Translations: [Fatty (change of) liver, not elsewhere classified] Onset: 01-27-2018 Chronic Other liver diseases (6 sources) ALT (SGPT) level raised; Translations: [Nonspecific elevation of levels of transaminase or lactic acid dehydrogenase [LDH]] Episodic Other nervous system disorders (4 sources) Other inflammatory and immune myopathies, not elsewhere classified; Translations: [Other chronic pain] Onset: 06-21-2017 Chronic Other nutritional; endocrine; and metabolic disorders (4 sources) Morbid (severe) obesity due to excess calories; Translations: [Morbid (severe) obesity due to excess calories] Onset: 06-21-2017 Chronic Other nutritional; endocrine; and metabolic disorders (2 sources) Obesity; Translations: [Obesity, unspecified] Chronic Other nutritional; endocrine; and metabolic disorders (1 source) Severe obesity; Translations: [Morbid (severe) obesity due to excess calories] 08-30-2023 Chronic Other upper respiratory infections (4 sources) Acute sinusitis; Translations: [Acute sinusitis, unspecified] Episodic Otitis media and related conditions (3 sources) Acute otitis media; Translations: [Otitis media, unspecified, unspecified ear] Onset: 08-02-2023 08-02-2023 Episodic Residual codes; unclassified (6 sources) Obstructive sleep apnea syndrome; Translations: [Obstructive sleep apnea (adult)(pediatric)] Chronic Residual codes; unclassified (2 sources) H/O: surgery; Translations: [Status post surgery] Episodic Residual codes; unclassified (4 sources) History of appendectomy; Translations: [Status post laparoscopic appendectomy] Episodic Systemic lupus erythematosus and connective tissue disorders (6 sources) Dermatomyositis; Translations: [Dermatomyositis] Chronic Unclassified (1 source) Eating disorder; Translations: [Eating Disorder] Onset: 01-13-2018 Chronic Unclassified (6 sources) Dependence on other enabling machines and devices; Translations: [Obstructive sleep apnea (adult) (pediatric)] Onset: 06-21-2017 Chronic Unclassified (2 sources) Binge eating disorder; Translations: [Binge eating disorder] Onset: 03-04-2018 Unclassified (1 source) Consult / 119() Onset: 01-07-2018 Unclassified (1 source) Eating Disorder / [id number]() Onset: 01-13-2018 Unclassified (1 source) New Patient / [id number]() Onset: 01-13-2018 Past or Other Problems Problem Classification Problem Date Documented Date Episodic/Chronic Allergic reactions (2 sources) Allergy status to other antibiotic agents status; Translations: [Allergy status to other antibiotic agents status] Onset: 06-21-2017 Episodic Medical examination/evaluatio n (2 sources) Encounter for other preprocedural examination; Translations: [Encounter for other preprocedural examination] Onset: 06-18-2017 Episodic Other aftercare (2 sources) 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; Translations: [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] Onset: 06-21-2017 Episodic Other connective tissue disease (2 sources) Muscle weakness (generalized); Translations: [Muscle weakness (generalized)] Onset: 06-18-2017 Episodic Other diseases of kidney and ureters (3 sources) Cyst of kidney; Translations: [Renal cyst] Screening or history of mental health and substance abuse (2 sources) Personal history of nicotine dependence; Translations: [Personal history of nicotine dependence] Onset: 06-21-2017 Episodic Spondylosis; intervertebral disc disorders; other back problems (2 sources) Dorsalgia, unspecified; Translations: [Dorsalgia, unspecified] Onset: 06-21-2017 Episodic Unclassified (1 source) New Patient; Translations: [New Patient] Onset: 01-13-2018 Unclassified (1 source) Consult; Translations: [Consult] Onset: 01-07-2018 Unclassified (1 source) Patient encounter status; Translations: [Encounter for immunization] Unclassified (3 sources) Onset: 12-25-2022 12-25-2022 NEGATED: Highlighted row has not occurred!Residual codes; unclassified (10 sources) Disease Episodic Results Test Name Value Interpretation Reference Range Facil ity Vital Signs Date Time Vital Sign Value Performing Clinician Evie quiroz 08-30-2023 16:17-0500 Body mass index (BMI) [Ratio] 44.06 kg/m2 Zoe Clancy MD MPH Work Phone: [facility] 08-30-2023 16:17-0500 Body weight 164.2 kg Zoe Clancy MD MPH Work Phone: [facility] 08-30-2023 16:17-0500 Diastolic blood pressure 82 mm[Hg] Zoe Clancy MD MPH Work Phone: [facility] 08-30-2023 16:17-0500 Heart rate 84 /min Zoe Clancy MD MPH Work Phone: [facility] 08-30-2023 16:17-0500 SaO2% (BldA) [Mass fraction] 98 % Zoe Clancy MD MPH Work Phone: [facility] 08-30-2023 16:17-0500 Systolic blood pressure 130 mm[Hg] Zoe Clancy MD MPH Work Phone: [facility] 08-02-2023 15:17-0500 Body height 193 cm Naseem LR Work Phone: [facility] 08-02-2023 15:17-0500 Body mass index (BMI) [Ratio] 44.68 kg/m2 Naseem Lovett FINISH MACHINE T[employer]ER[employer] Work Phone: [facility] 08-02-2023 15:17-0500 Body temperature 98.29 [degF] Naseem Lovett FINISH MACHINE TENDER[employer] Work Phone: [facility] 08-02-2023 15:17-0500 Body weight 166.51 kg Naseem Lovett FINISH MACHINE T[employer]ER[employer] Work Phone: [facility] 08-02-2023 15:17-0500 Diastolic blood pressure 80 mm[Hg] Naseem Lovett FINISH MACHINE T[employer] Work Phone: [facility] 08-02-2023 15:17-0500 Heart rate 75 /min Naseem Lovett FINISH MACHINE T[employer] Work Phone: [facility] 08-02-2023 15:17-0500 Systolic blood pressure 128 mm[Hg] Naseem Lovett FINISH MACHINE T[employer] Work Phone: [facility] 12-25-2022 15:32-0400 Body height 190.5 cm Zoe Clancy MD MPH Work Phone: [facility] 12-25-2022 15:32-0400 Body mass index (BMI) [Ratio] 42.85 kg/m2 Zoe Clancy MD MPH Work Phone: [facility] 12-25-2022 15:32-0400 Body weight 155.49 kg Zoe Clancy MD MPH Work Phone: [facility] 12-25-2022 15:32-0400 Diastolic blood pressure 87 mm[Hg] Zoe Clancy MD MPH Work Phone: [facility] 12-25-2022 15:32-0400 Heart rate 59 /min Zoe Clancy MD MPH Work Phone: [facility] 12-25-2022 15:32-0400 SaO2% (BldA) [Mass fraction] 94 % Zoe Clancy MD MPH Work Phone: [facility] 12-25-2022 15:32-0400 Systolic blood pressure 130 mm[Hg] Zoe Clancy MD MPH Work Phone: [facility] 01-02-2022 10:23-0400 Body height 193.04 cm Zoe Nag S Mallapareddi Work Phone: [facility] Work Phone: 01-02-2022 10:23-0400 Body mass index (BMI) [Ratio] 39.12 kg/m2 Zoe Nag S Mallapareddi Work Phone: [facility] Work Phone: 01-02-2022 10:23-0400 Body surface area Derived from formula 2.71 m2 Zoe Nag S Mallapareddi Work Phone: [facility] Work Phone: 01-02-2022 10:23-0400 Body weight 145.77 kg Zoe Nag S Mallapareddi Work Phone: [facility] Work Phone: 01-02-2022 10:23-0400 Diastolic blood pressure 84 mm[Hg] Zoe Nag S Mallapareddi Work Phone: [facility] Work Phone: 01-02-2022 10:23-0400 Heart rate 60 /min Zoe Nag S Mallapareddi Work Phone: [facility] Work Phone: 01-02-2022 10:23-0400 Systolic blood pressure 122 mm[Hg] Zoe Nag S Mallapareddi Work Phone: [facility] Work Phone: 04-16-2021 09:57-0400 Body height 193.04 cm Zoe Nag S Mallapareddi Work Phone: [facility] Work Phone: 04-16-2021 09:57-0400 Body mass index (BMI) [Ratio] 37.43 kg/m2 Zoe Nag S Mallapareddi Work Phone: [facility] Work Phone: 04-16-2021 09:57-0400 Body surface area Derived from formula 2.66 m2 Zoe Nag S Mallapareddi Work Phone: [facility] Work Phone: 04-16-2021 09:57-0400 Body weight 139.48 kg Zoe Nag S Mallapareddi Work Phone: [facility] Work Phone: 04-16-2021 09:57-0400 Diastolic blood pressure 76 mm[Hg] Zoe Nag S Mallapareddi Work Phone: [facility] Work Phone: 04-16-2021 09:57-0400 Heart rate 76 /min Zoe Nag S Mallapareddi Work Phone: [facility] Work Phone: 04-16-2021 09:57-0400 Systolic blood pressure 126 mm[Hg] Zoe Nag S Mallapareddi Work Phone: [facility] Work Phone: 09-27-2020 17:51-0500 BMI (Body Mass Index) 45.44 kg/m2 Zoe Nag Mallapareddi [facility] Work Phone: 09-27-2020 17:51-0500 Body weight 169.33 kg Zoe Nag Mallapareddi [facility] Work Phone: 09-27-2020 17:51-0500 BP Diastolic 70 mm[Hg] Zoe Nag Mallapareddi [facility] Work Phone: 09-27-2020 17:51-0500 BP Systolic 110 mm[Hg] Zoe Nag Mallapareddi [facility] Work Phone: 09-27-2020 17:51-0500 BSA (Body Surface Area) 2.89 m2 Zoe Nag Mallapareddi [facility] Work Phone: 09-27-2020 17:51-0500 Height 193.04 cm Zoe Nag Mallapareddi [facility] Work Phone: 09-24-2020 11:46-0500 BMI (Body Mass Index) 45.79 kg/m2 Zoe Nag Mallapareddi [facility] Work Phone: 09-24-2020 11:46-0500 Body weight 170.63 kg Zoe Nag Mallapareddi [facility] Work Phone: 09-24-2020 11:46-0500 BP Diastolic 76 mm[Hg] Zoe Nag Mallapareddi [facility] Work Phone: 09-24-2020 11:46-0500 BP Systolic 116 mm[Hg] Zoe Nag Mallapareddi [facility] Work Phone: 09-24-2020 11:46-0500 BSA (Body Surface Area) 2.9 m2 Zoe Nag Mallapareddi [facility] Work Phone: 09-24-2020 11:46-0500 Height 193.04 cm Zoe Guzman Mallapareddi [facility] Work Phone: 09-24-2020 11:46-0500 Pulse (Heart Rate) 72 /min Zoe Nag Mallapareddi [facility] Work Phone: Encounters Encounter Date Encounter Type Care Provider Facility Start: 08-30-2023 End: 08-30-2023 Office outpatient visit 15 minutes Zoe Clancy MD MPH Work Phone: [facility] Procedures Date Procedure Procedure Detail Performing Clinician Start: 01-04-2023 Lipid 1996 panel - Serum or Plasma Naseem Lovett FINISH MACHINE TENDER[employer] Work Phone: Start: 01-05-2022 Lipid 1996 panel - Serum or Plasma Zoe Clancy MD MPH Work Phone: Appendectomy Sola Mani Esophagogastrostomy, antesternal or antethoracic Zoe Clancy History of appendectomy Status p ost laparoscopic appendectomy Zoe Clancy Work Phone: Plan of Treatment Date Care Activity Detail Author Start: 02-10-2036 Zoster Vaccines (1 o f 2) Zoster Vaccines (1 of 2) [facility] Start: 01-05-2028 Lipid panel Lipid Panel [facility] Start: 01-05-2027 Lipid panel Lipid Panel [facility] Start: 01-04-2026 Diabetes mellitus screening Diabetes Screening [facility] Start: 01-05-2025 Diabetes mellitus screening Diabetes Screening [facility] Start: 12-27-2023 End: 12-27-2023 Patient encounter procedure 12/27/2023 3:00 PM EDT Office Visit [place] [address] [place] [address] Zoe Clancy MD MPH [address] [facility] [address] [place] [address] [facility] Start: 12-27-2023 Yearly Adult Physical Yearly Adult P hysical [facility] Start: 09-28-2023 End: 09-28-2023 Patient encounter procedure 09/28/2023 7:40 AM EST Office Visit [facility] [address] [place] [address] Zoe Clancy MD MPH [address] [facility] [address] [place] [address] [facility] Start: 08-30-2023 End: 08-30-2024 Basic metabolic 2000 panel - Serum or Plasma Basic Metabolic Panel Lab Routine Class 3 severe obesity due to excess calories with body mass index (BMI) of 45.0 to 49.9 in adult, unspecified whether serious comorbidity present (CMS/HCC) Expected: 08/30/2023 (Approximate), Expires: 08/30/2024 [facility] Service Area Work Phone: Immunizations Immunization Date Immunization Notes Care Provider Fa cility 01-03-2021 Moderna COVID-19 Vaccine 100 MCG/0.5ML Intramuscular Suspension Zoe [facility] [employer] Work Phone: [facility] Work Phone: 12-05-2020 Moderna COVID-19 Vaccine 100 MCG/0.5ML Intramuscular Suspension Zoe [facility] [employer] Work Phone: [facility] Work Phone: 08-30-2020 influenza, injectabl e, quadrivalent, preservative free; Translations: [Flulaval Quadrivalent 0.5 ML Intramuscular Suspension Prefilled Syringe] [facility] Work Phone: Payers Date Payer Category Payer Unknown [id number] 2018 Unknown 1986 Unknown [id number] [id number] [id number] 1986 Unknown [id number] [id number] [id number] 1986 Unknown [id number] [id number] [id number] 1986 Unknown [id number] 1986 Unknown [id number] [id number] [id number] 1986 Unknown [id number] [id number] [id number] Social History Date Type Detail Facility Start: 12-25-2022 End: 08-30-2023 Former smoker Former smoker [facility] Work Phone: Start: 12-25-2022 Tobacco smoking status NHIS Ex-smoker [facility] Work Phone: History of tobacco use Current smoker [facility] Work Phone: History of tobacco use Cigarette Smoker [facility] Work Phone: Start: 12-25-2022 Tobacco use and exposure Smokeless tobacco non-user [facility] Work Phone: Start: 12-25-2022 End: 08-30-2023 Alcohol intake Current drinker of alcohol (finding) [facility] Work Phone: Start: 12-25-2022 End: 08-30-2023 Tobacco use panel [facility] Work Phone: Start: 12-25-2022 Alcohol Comment [facility] Start: 1985 Sex Assigned At Not on file [facility] Work Phone: Start: 07-23-2023 End: 08-30-2023 Exposure to SARS-CoV-2 (event) Not sure [facility] NEGATED: Highlighted row - - [facility] Work Phone: Functional Status Date Assessment Result Facility NEGATED: Highlighted row Functional performance Functional status health issues are not documented Disease [facility] Work Phone: Mental Status Date Assessment Result Facility NEGATED: Highlighted row Cognitive function [Interpretation] Cognitive status health issues are not documented Disease [facility] Work Phone: Clinical Notes 10-25-2020 to 08-30-2023 Zoe Clancy MD MPH - 08/30/2023 4:20 PM Sterling Lovett APRN-[employer] - 08/02/2023 3:30 PM Anibal Clancy MD MPH - 12/25/2022 3:20 PM EDT Note Date & Type Note Facility 08-30-2023 History of Present illness Narrative Subjective Patient ID: Abhay Mayes is a 38 y.o. male who presents for Weight Loss (PT is here today for information on weight loss medication and would be interested in started on something. Pt reports he has tried to loose weight in the past, has also tried diet and working out in the past and reports it does not work. Reports he has followed an eating plan in the past after his weight loss surgery in 2019. ). HPI Lost about 150 lbs after gastric sleeve in 2019. His least weight was 295 lbs around February 2021.Since then he has gained weight due to excess caloric intake. Reports that he would like to work on his weight now by controlling calorie consumption. But he would like to get additional support for medication along with dietary changes. Starting Ozempic. Discussed the potential side effects of the medication including pancreatitis, acute kidney injury, thyroid disorders. Patient expressed understanding and would like to try the medication. Encouraged increasing the physical activity as well. BMP in a couple of weeks. Review of Systems ROS negative except discussed above in HPI. Vitals: 08/30/23 1617 BP: 130/82 Pulse: 84 SpO2: 98% Objective Physical Exam Constitutional: Appearance: Normal appearance. Neurological: General: No focal deficit present. Mental Status: He is alert. Psychiatric: Mood and Affect: Mood normal. Behavior: Behavior normal. Assessment/Plan Abhay was seen today for weight loss. Diagnoses and all orders for this visit: Class 3 severe obesity due to excess calories with body mass index (BMI) of 45.0 to 49.9 in adult, unspecified whether serious comorbidity present (CMS/FORMER[facility]) (Primary) - semaglutide 0.25 mg or 0.5 mg (2 mg/3 mL) pen injector; Inject 0.25 mg under the skin 1 (one) time per week for 30 days, THEN 0.5 mg 1 (one) time per week. - semaglutide (OZEMPIC) 1 mg/dose (4 mg/3 mL) pen injector; Inject 1 mg under the skin 1 (one) time per week. Do not start before October 28, 2023. - Basic Metabolic Panel; Future Follow up in 3 to 4 weeks Zoe Clancy MD MPH documented in this encounter [facility] Work Phone: 08-02-2023 History of Present illness Narrative Subjective Patient ID: Abhay Mayes is a 38 y.o. male who presents for Earache (Right ear) and Cough. Right ear pain Started about 10 days Sx include: hearing muffled, pain in right ear, occasionally pain to jaw as was Denies all other upper respiratory sx. Review of Systems Constitutional: Negative for activity change, appetite change, chills, diaphoresis and fever. HENT: Positive for ear pain and hearing loss. Negative for congestion, ear discharge, postnasal drip, rhinorrhea, sneezing, sore throat and trouble swallowing. Respiratory: Negative for cough. Cardiovascular: Negative for chest pain. Musculoskeletal: Negative for myalgias. Neurological: Negative for dizziness, light-headedness and headaches. Objective BP 128/80 (Patient Position: Sitting) Pulse 75 Temp 36.8 C (98.3 F) Ht 1.93 m (6' 4 ) Wt (!) 167 kg (367 lb 1.6 oz) BMI 44.68 kg/m Physical Exam Vitals reviewed. Constitutional: General: He is not in acute distress. Appearance: Normal appearance. He is obese. He is not ill-appearing. HENT: Right Ear: Decreased hearing noted. Swelling and tenderness present. No drainage. Tympanic membrane is erythematous. Left Ear: Tympanic membrane normal. Cardiovascular: Rate and Rhythm: Normal rate and regular rhythm. Pulmonary: Effort: Pulmonary effort is normal. Breath sounds: Normal breath sounds. Skin: General: Skin is warm and dry. Neurological: Mental Status: He is alert and oriented to person, place, and time. Assessment/Plan Diagnoses and all orders for this visit: Acute otitis media, unspecified otitis media type - amoxicillin (Amoxil) 500 mg capsule; Take 1 capsule (500 mg) by mouth 2 times a day with meals for 10 days. Recommend he try OTC Flonase nasal spray to help with drainage as needed Instructed to return if any ear pain persists after completion of antibiotic coarse May take OTC pain reliever as needed documented in this encounter [facility] Work Phone: 12-25-2022 History of Present illness Narrative Subjective Patient ID: Abhay Mayes is a 37 y.o. male who presents for Follow-up (1 year FUV. ). HPI there are no concerns today. The patient's health since the last visit is described as fair. There are no interval changes in the patient's PMH, PSH, and current medications. There are no interval changes in the patient's social and family history. he has regular dental visits. he complains of vision problems. he has hearing loss. Immunizations status: not up to date. Lifestyle: he does not have a healthy diet. he has weight concerns. he does not exercise regularly. he does not use tobacco. he consumes alcohol. physical job. Metabolic screening: lipid profile performed within the past five years and glucose screening performed . No acute concerns expressed. Migraine: Takes sumatriptan as needed. Had a couple of episodes last year. Refill provided. Diastolic blood pressure is mildly elevated. Recommended checking his blood pressure regularly. If persistently elevated he will return back sooner. Recommended weight loss as he has gained about 35 pounds in the last 2 years. Review of Systems ROS negative except discussed above in HPI. Vitals: 12/25/22 1532 BP: 130/87 Pulse: 59 SpO2: 94% Objective Physical Exam Constitutional: Appearance: Normal appearance. Cardiovascular: Rate and Rhythm: Normal rate and regular rhythm. Pulmonary: Effort: Pulmonary effort is normal. Breath sounds: Normal breath sounds. Musculoskeletal: Cervical back: Normal range of motion and neck supple. Right lower leg: Edema present. Left lower leg: Edema present. Lymphadenopathy: Cervical: No cervical adenopathy. Neurological: Mental Status: He is alert. Assessment/Plan Abhay was seen today for follow-up. Diagnoses and all orders for this visit: Other migraine without status migrainosus, not intractable (Primary) - SUMAtriptan (Imitrex) 50 mg tablet; Take 1 tablet (50 mg) by mouth 1 time if needed for migraine. Follow-up in a year. Fasting labs to be done now to be able to fill the form for his insurance. Zoe Clancy MD MPH documented in this encounter [facility] Work Phone: 04-11-2021 History of Present illness Narrative Patient is here for evaluation of his intermittent headaches. Patient reports that since last week he has been having intermittent headaches when he is working out. Especially occurs when he is doing squats. Pain starts in the neck and radiates to the frontal region episodes can last sometimes the entire day. Episodes are present only on the right side.His blood pressure is normal in the clinic today. Normal heart rate and rhythm. No acute neurological deficit noticed.Headaches appear to be musculoskeletal in origin. Potential occipital headaches. Recommended to check blood pressure when he gets these headaches. Recommended caution with exercises. Examination is evident of right trapezius right decreased muscle volume. Recommended to perform simple isometric neck muscle strengthening exercises. We will continue to monitor symptoms for now. If worsening of symptoms will consider further evaluation.Follow-up as needed for this concern. Recommend to seek immediate medical attention if acute worsening of symptoms [facility] Work Phone: 01-30-2021 Note HNO ID: [id number] Author: Marilyn Dahl APRN.INSPECTORS AND REGULATORY OFFICERS, PhD Service: ? Author Type: Nurse Practitioner Type: Progress Notes Filed: 01/31/2021 9:58 AM Note Text: Sleep Medicine Consultation [facility] -virtual visit via [employer] platform. Identity confirmed via and address. PATIENT NAME: Abhay Mayes DATE OF SERVICE: January 30, 2021 REASON FOR CONSULT: Abhay Mayes is a 35 year old male with DOUG who has been treated with CPAP. He is s/p post bariatric surgery 07/2020 who presents for re-evaluation of his DOUG. In 2014, had snoring and witnessed apnea, per He would wake himself up from snoring Had PSG done in [facility] Has used CPAP since then finds it very helpful, recently talked with PCP about need to continue and PCP said just to continue History of bariatric surgery in Jul 2020 Starting weight 451 surgery weight 418Current weight is 314 ideal weight ? 200 lbs. SLEEP APNEA Sleep apnea type : DOUG, Most Recent Apnea-Hypopnea Index (AHI): no data available Treatment : PAP therapy DME: Bhavana PAP History: No data available, requested He believes he is on CPAP of 8 cm H2O Mask type: full face mask Mask issues: None Uses chin strap: No Uses ramp function: Yes Uses humidity: Yes There is a perceived benefit by the patient: Observers report abolition of snoring with CPAP use. 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 Tries to maintain same sleep schedule when he does not work For last week sleep has been erratic due to childcare responsibilities PRIOR SLEEP STUDIES: External Study in chart Split night performed on 09/13/2014, 55.2, pulse ox belwo 90% for 11% of study (via PSG - scanned documents) OTHER RELEVANT LABS AND STUDIES: No PAST MEDICAL HISTORY Diagnosis Date - Class 3 obesity 04/19/2020 - Dermatomyositis (HCC) 04/19/2020 - Essential hypertension 04/19/2020 - Fatty liver 04/19/2020 - Insulin resistance 06/14/2020 - Migraine without aura, not intractable 04/19/2020 - DOUG treated with BiPAP 04/19/2020 - Psoriasis 04/19/2020 PAST SURGICAL HISTORY Procedure Laterality Date - APPENDECTOMY 2016 - EGD W/O OR W/BRUSH/WASH 06/03/2020 EGD - MUSCLE BIOPSY 2017 to diagnose dermatomyositis - PAST SURGICAL HISTORY OF teen wisdom teeth extracted ACTIVE PROBLEM LIST Class 2 Obesity With Alveolar Hypoventilation, Serious Comorbidity, and Body Mass Index (Bmi) of 39.0 to 39.9 in Adult (Hcc) Essential Hypertension Dermatomyositis (Hcc) Psoriasis Migraine Without Aura, Not Intractable Doug Treated With Bipap Fatty Liver Umbilical Hernia With Obstruction, Without Gangrene Former Tobacco Use Insulin Resistance Morbid Obesity (Hcc) Encounter for Postoperative Care Obesity, Class III, BMI >= 40 Allergies As of Date: 01/30/2021 (No Known Allergies) Fully Assessed 01/24/2021 CURRENT MEDICATIONS: pantoprazole DR (PROTONIX) 40 mg tablet Take 1 tablet by mouth once daily. topiramate (TOPAMAX) 50 mg tablet Take 1 tablet by mouth daily at bedtime. SUMAtriptan (IMITREX) 50 mg tablet Take 1 tablet by mouth as needed. MULTIVIT-MINERALS/FERROUS FUM (MULTI VITAMIN ORAL) Take by mouth once daily. REVIEW OF SYSTEMS SLEEP RELATED ROS GENERAL: See HPI HEENT: negative RESPIRATORY: negative CARDIOVASCULAR: negative GI: negative : negative MUSCULOSKELETAL: negative PSYCH: negative NEURO: negative SOCIAL HISTORY Social History Tobacco Use - Smoking status: Former Smoker Years: 7.00 Types: Cigarettes Quit date: 11/06/2011 Years since quittin.2 - Smokeless tobacco: Former User Types: Chew Quit date: 2011 - Tobacco comment: was 1 pack per week Vaping Use - Vaping Use: Never used Substance Use Topics - Alcohol use: Not Currently - Drug use: Never Current employment status:employed Drowsy driving: No PHYSICAL EXAMINATION: VIDEO EXAM: performed via video enabled technology General: Well developed, No acute distress Eyes: clear, no drainage Nose: no exudate OP: moist mucous membranes Neck: Full ROM Lungs: nonlabored breathing, no audible wheezing, no retractions Abdomen: obese Skin: no rashes IMPRESSION: Adam is a 35 year old male with severe DOUG by PSG (2014). He uses CPAP and receives benefit. He is a gardening manager worker, but denies any shift work sleep disorder symptoms. He has lost ~ 100 pounds following bariatric surgery in July of 2020. PMH of obesity, HTN, fatty liver, insulin resistance and migraine. Doug (obstructive sleep apnea) (primary encounter diagnosis) Weight loss Class 2 severe obesity with serious comorbidity and body mass index (bmi) of 39.0 to 39.9 in adult, unspecified obesity type (hcc) (more content not included)... [facility] 01-23-2021 Note HNO ID: [id number] Author: Gela Melendez APRN.HEALTH INSURANCE ASSESSOR Service: ? Author Type: Nurse Specialist Type: Progress Notes Filed: 01/24/2021 2:46 PM Note Text: Name: Abhya Mayes This visit was conducted as a virtual visit. Index Surgery Date of Surgery: 07/26/2020 Surgeon: Morteza Chan MD Surgical Procedure: LAPAROSCOPIC LONGITUDINAL GASTRECTOMY, GASTRIC RESTRICTIVE PROCEDURE Pre-surgical weight: 189.6 kg (418 lb) Override Index Surgery Information? No Other Bariatric Surgeries None Visit: 5 months Three meals a day- two protein shakes Lunch and snack. No caffine Weeder Thinner Walking daily resistance training once a week. Today's Visit: There were no vitals taken for this visit. BMI 39.25 kg/(m2) C-pap nightly- Sleeps through night Last Visit: Wt: 161 kg (355 lb) BMI: 44.37 kg/(m2) Total weight loss: 104 pounds [place] weight: 90.7 kg (200 lb 0.6 oz) Excess weight: 98.9 kg (217 lb 15.4 oz) % of excess body weight lost: 189.6 kg (418 lb) (191.77% of excess weight loss) COMPLICATIONS SINCE LAST VISIT?: NONE DIET INTAKE: tolerates Phase V diet DAILY SUPPLEMENTS: Calcium: Calcium Citrate w/ vitamin D (1200 - 1500mg) Multivitamin AND Minerals: 1 per day Iron Supplement: 45-60 mg Vitamin B12: 500 mcg Vitamin D3: 2000 IU Other: N/A EXERCISE: total minutes per week: 150 minutes Are you attending any Support Groups? Not known Current Outpatient Medications Medication Sig - propranolol ER (INDERAL LA) 60 mg 24 hr capsule Take 60 mg by mouth once daily. - topiramate (TOPAMAX) 50 mg tablet Take 1 tablet by mouth daily at bedtime. - pantoprazole DR (PROTONIX) 40 mg tablet Take 1 tablet by mouth once daily. - OTEZLA 30 mg tablet Take 1 tablet by mouth twice daily. - SUMAtriptan (IMITREX) 50 mg tablet Take 1 tablet by mouth as needed. - MULTIVIT-MINERALS/FERROUS FUM (MULTI VITAMIN ORAL) Take by mouth once daily. No current facility-administered medications for this visit. REVIEW OF SYSTEMS: Denies nausea, vomiting, dumping syndrome, reactive hypoglycemia, gustatory rhinorrhea, Denies abdominal pain, constipation, diarrhea, melena, hematochezia, Denies paresthesias, gait abnormality, fatigue, weakness, lower extremity edema and Denies taking NSAIDs OBESITY MEDICINE COMORBIDITIES: Obstructive Sleep Apnea Sleep Apnea with use of CPAP, Bi-PAP, or similar technology PHYSICAL EXAM: Deferred, no abdominal issues Assessment A/P: Normal post-OP course Patient Active Problem List Encounter for postoperative care Obesity, Class III, BMI >= 40 Morbid obesity (HCC) Insulin resistance Former tobacco use Class 3 obesity Essential hypertension Dermatomyositis (HCC) Psoriasis Migraine without aura, not intractable DOUG treated with BiPAP Fatty liver Umbilical hernia with obstruction, without gangrene Resolved Hospital Problems No resolved problems to display. DISPOSITION: Return 3 month to Post-op follow up/ individual office visit EDUCATION: Encouraged to continue with healthy lifestyle changes and incorporate cardiovascular and resistance training, Discussed weight loss expectations after bariatric and metabolic surgery, Advised PT to avoid NSAIDs, smoking tobacco given increased risk of marginal ulcers or Discussed importance of protein intake as per the RDN note REFERRALS: N/A LABS: Today: done- WNL I spent a total of 20 minutes on the date of the service which included preparing to see the patient, [id number] patient care, completing clinical documentation and counseling and educating the patient/family/caregiver. Gela Melendez APRN.HEALTH INSURANCE ASSESSOR [facility] 01-23-2021 Note HNO ID: [id number] Author: Jenni Phillips RD Service: ? Author Type: Registered Dietitian Type: Progress Notes Filed: 01/23/2021 8:40 AM Note Text: The [facility] Nutrition Therapy: Virtual Consult ? Re-assessment This visit was performed virtually due to the COVID-19 epidemic as an effort to protect patients and minimize exposure. Consent from patient received to conduct visit virtually. This Team Access Model visit is a virtual encounter. It required patient-provider interaction for the medical decision making as documented below. PROGRESS: Nutrition Intervention (date of last encounter 10/25/2020): 1. Chew food 20-30 times per bite, making meals last 30 minutes and stop drinking within 30 minutes before a meal, during meals, and 30 minutes after meals 2. Vitamin/minerals: (2) children's chewable Multivitamin complete (morning) OR (2) Centrum Complete Chewables, Iron supplement 18 mg (morning), Vit B12 500 mcg sublingual pill or liquid (morning), and calcium citrate w/Vit D 600 mg at lunch and 600 mg at dinner. Additional 3000 IU Vit D3 daily, B complex with 75-100 mg Thiamine 3. Eating protein first at every meal with a goal of 95-120 grams per day 4. 64oz of calorie-free, caffeine-free, no carbonation, no alcohol containing beverages 5. Physical activity-continue Cardio 150-250 minutes/week and strength/resistance training 2x per week for 10-20 minutes/session CHANGES IN TREATMENT: Patient met goal(s): Yes Actions to implement interventions: see assessment CLINICAL IMPRESSIONS: good Allergies: ALLERGIES No Known Allergies Medications: Current Outpatient Medications Medication Sig Dispense Refill - propranolol ER (INDERAL LA) 60 mg 24 hr capsule Take 60 mg by mouth once daily. - topiramate (TOPAMAX) 50 mg tablet Take 1 tablet by mouth daily at bedtime. 90 tablet 3 - pantoprazole DR (PROTONIX) 40 mg tablet Take 1 tablet by mouth once daily. 30 tablet 5 - OTEZLA 30 mg tablet Take 1 tablet by mouth twice daily. - SUMAtriptan (IMITREX) 50 mg tablet Take 1 tablet by mouth as needed. - MULTIVIT-MINERALS/FERROUS FUM (MULTI VITAMIN ORAL) Take by mouth once daily. No current facility-administered medications for this visit. PAST MEDICAL HISTORY Diagnosis Date - Class 3 obesity 04/19/2020 - Dermatomyositis (HCC) 04/19/2020 - Essential hypertension 04/19/2020 - Fatty liver 04/19/2020 - Insulin resistance 06/14/2020 - Migraine without aura, not intractable 04/19/2020 - DOUG treated with BiPAP 04/19/2020 - Psoriasis 04/19/2020 PAST SURGICAL HISTORY Procedure Laterality Date - APPENDECTOMY 2016 - EGD W/O OR W/BRUSH/WASH 06/03/2020 EGD - MUSCLE BIOPSY 2017 to diagnose dermatomyositis - PAST SURGICAL HISTORY OF teen wisdom teeth extracted ANTHROPOMETRICS Weight per patient: 314.7# Most recent height and weight per EPIC Height: Last 1 Encounter Ht Readings: Date: Ht: 10/25/2020 190.5 cm (6' 3 ) Weight: Last 1 Encounter Wt Readings: Date: Wt: 10/25/2020 161 kg (355 lb) Body mass index is 44.37 kg/m?. Educational materials provided: None this visit Patient presents for follow up nutrition Virtual Consult. Patient is 6 months post op LSG (Dr. Chan). Patient lost 115# since initial nutrition assessment (430 lb) and 40# since last nutrition visit (355 lb), accounting for a loss of 45% of excess body weight (255 lb)- slightly less than anticipated rate of weight loss, but patient is noticing losing several clothing sizes. Dietary recall reveals phase 5 diet without any issues- 3 meals per day with 2 protein shakes. Protein intake is on track- 95-120 grams daily which is 100% of goal- able to consume 4+ ounces protein at each meal. Fluid intake is adequate and appropriate-propel and electrolyte based beverage. Exercise is routine- walking 20 minutes daily and 1/week total gym (30 minutes). Patient adherent (Fusion mvi complete and calcium citrate) with vitamin/mineral supplements. Labs reveal bariatric labs wnl. Recommended Protein intake (1.2-1.5 g protein/kg IBW): 95-120 grams Nutrition Diagnosis: Overweight/obesity, related to, decreased energy needs, as evidenced by BMI above normative standard for age and gender. Nutrition Intervention: Modify type and amount of food consumed for meals and snacks: 1. Chew food 20-30 times per bite, making meals last 30 minutes and stop drinking within 30 minutes before a meal, during meals, and 30 minutes after meals 2. Vitamin/minerals: (2) children's chewable Multivitamin complete (morning) OR (2) Centrum Complete Chewables, Iron supplement 18 mg (morning), Vit B12 500 mcg sublingual pill or liquid (morning), and calcium citrate w/Vit D 600 mg at lunch and 600 mg at dinner. Additional 3000 IU Vit D3 daily, B complex with 75-100 mg Thiamine 3. Eating protein first at every meal with a goal of 95-120 grams per day 4. 64oz of calorie-free, caffeine-free, no carbonation, no alcoho (more content not included)... [facility] 10-25-2020 Note HNO ID: [id number] Author: Jenni Phillips Service: ? Author Type: Registered Dietitian Type: Progress Notes Filed: 10/25/2020 8:23 AM Note Text: [facility] Nutrition Therapy: Virtual Consult ? Re-assessment This visit was performed virtually due to the COVID-19 epidemic as an effort to protect patients and minimize exposure. Consent from patient received to conduct visit virtually. This Team Access Model visit is a virtual encounter. It required patient-provider interaction for the medical decision making as documented below. PROGRESS: Nutrition Intervention (date of last encounter 08/28/2020): 1. Continue to take Bariatric Fusion chewable complete bariatric vitamin (2) chews, twice daily per package directions. . ? 2. Continue to eat 95-120 grams protein/day over 3 meals and 2 snacks. Okay to use the meal replacement shakes for additional protein until you establish more food intake. Increase calories from 800-1000 calories/day to 8953-4739 calories/day by next session. Advance to phase 4 diet (includes vegetables) in 2 weeks. 3. Continue to drink at least 64oz per day water. Powerade zero is fine.(no calories, no caffeine, no carbonation, no alcohol) ? 4. Exercise goal: 150-250 minutes combination cardio/strength training/week ? 5. Practice mindful eating habits-take small portions, eat slowly, chew thoroughly ? 6. Begin incorporating healthy oils to meals and snack to raise overall calorie intake (avocados/avocado oil; peanut oil, nuts etc) CHANGES IN TREATMENT: Patient met goal(s): Yes Actions to implement interventions: see assessment CLINICAL IMPRESSIONS: good Allergies: ALLERGIES No Known Allergies Medications: Current Outpatient Medications Medication Sig Dispense Refill - pantoprazole DR (PROTONIX) 40 mg tablet Take 1 tablet by mouth once daily. 30 tablet 5 - ursodiol (ACTIGALL) 300 mg capsule Take 1 capsule by mouth twice daily with meals. 180 capsule 1 - topiramate (TOPAMAX) 25 mg tablet Take 2 tablets by mouth daily at bedtime. 60 tablet 3 - propranolol ER (INDERAL LA) 120 mg 24 hr capsule Take 1 capsule by mouth q 24 HR. - OTEZLA 30 mg tablet Take 1 tablet by mouth twice daily. - SUMAtriptan (IMITREX) 50 mg tablet Take 1 tablet by mouth as needed. - MULTIVIT-MINERALS/FERROUS FUM (MULTI VITAMIN ORAL) Take by mouth once daily. No current facility-administered medications for this visit. PAST MEDICAL HISTORY Diagnosis Date - Class 3 obesity 04/19/2020 - Dermatomyositis (HCC) 04/19/2020 - Essential hypertension 04/19/2020 - Fatty liver 04/19/2020 - Insulin resistance 06/14/2020 - Migraine without aura, not intractable 04/19/2020 - DOUG treated with BiPAP 04/19/2020 - Psoriasis 04/19/2020 PAST SURGICAL HISTORY Procedure Laterality Date - APPENDECTOMY 2016 - EGD W/O OR W/BRUSH/WASH 06/03/2020 EGD - MUSCLE BIOPSY 2017 to diagnose dermatomyositis - PAST SURGICAL HISTORY OF teen wisdom teeth extracted ANTHROPOMETRICS Weight per patient: 355# Most recent height and weight per EPIC Height: Last 1 Encounter Ht Readings: Date: Ht: 08/28/2020 190.5 cm (6' 3 ) Weight: Last 1 Encounter Wt Readings: Date: Wt: 09/06/2020 169.2 kg (373 lb) Body mass index is 44.37 kg/m?. Educational materials provided: None this visit Patient presents for follow up nutrition Virtual Consult. Patient is 3 months post op LSG: Patient lost 75# since initial nutrition assessment (430 lb) and 26# since last nutrition visit (381 lb), accounting for a loss of 29% of excess body weight (255 lb). Dietary recall reveals 3 meals per day + 2 protein shakes/day- phase 4 without any issues. Protein intake is on track- estimates 95-120 grams with sources including boiled eggs, variety of proteins with 4 ounces in a sitting. Fluid intake is adequate- includes propel and plain water- low risk for dehydration with electrolyte drop in- does separate foods and fluids 30 minutes. Exercise is routine- walking 20-30 minutes daily at lunch break or treadmill at home (2.5-2.7 mph). Patient adherent (Fusion and calcium citrate) with vitamin/mineral supplements. Labs reveal n/a- no recent labs available to evaluate. Recommended Protein intake (1.2-1.5 g protein/kg IBW): 95-120 grams Nutrition Diagnosis: Overweight/obesity, related to, decreased energy needs, as evidenced by BMI above normative standard for age and gender. Nutrition Intervention: Modify type and amount of food consumed for meals and snacks: 1. Chew food 20-30 times per bite, making meals last 30 minutes and stop drinking within 30 minutes before a meal, during meals, and 30 minutes after meals 2. Vitamin/minerals: (2) children's chewable Multivitamin complete (morning) OR (2) Centrum Complete Chewables, Iron supplement 18 mg (morning), Vit B12 500 mcg sublingual pill or liquid (morning), and calcium citrate w/Vit D 600 mg at lunch and 600 mg at dinner. Additional 300 (more content not included)... [facility] 10-25-2020 Note HNO ID: [id number] Author: Elsa Genao Service: ? Author Type: Nurse Practitioner Type: Progress Notes Filed: 10/25/2020 7:26 AM Note Text: BMI OM PostOp Clinic Note - virtual visit October 25, 2020 Index Surgery Date of Surgery: 07/26/2020 Surgeon: Morteza Chan Surgical Procedure: LAPAROSCOPIC LONGITUDINAL GASTRECTOMY, GASTRIC RESTRICTIVE PROCEDURE Pre-surgical weight: 189.6 kg (418 lb) Override Index Surgery Information? No Other Bariatric Surgeries None Visit: 3 months Today's Visit: Wt 161 kg (355 lb) BMI 44.37 kg/m2 BMI 44.37 kg/(m2) Last Visit: Wt: 169.2 kg (373 lb) BMI: 46.62 kg/(m2) Total weight loss: 28.6 kg (63 lb) [place]cer weight: 90.7 kg (200 lb 0.6 oz) Excess weight: 98.9 kg (217 lb 15.4 oz) % of excess body weight lost: 28.6 kg (63 lb) (28.90% of excess weight loss) COMPLICATIONS SINCE LAST VISIT?: NONE INTERVAL HISTORY Here for postop visit DIET INTAKE: Pt has appt with RD later this morning. He is eating 3 meals per day, 2 protein shakes during breaks at work Proteins and vegetables DAILY SUPPLEMENTS: Yes Calcium: Calcium Citrate w/ vitamin D (1200 - 1500mg) with zinc/magnesium Multivitamin AND Minerals: bariatric fusion 1 perday Iron Supplement: included in multi-vitamin Vitamin B12: included in multivitamin Vitamin D3: included in multi-vitamin Other: Actigall 300 mg twice daily Pantoprazole EXERCISE: Walking for 20-30 min per day, on weekends does weight exercise with kettlebell SLEEP: DOUG Yes , BiPAP Yes Are you attending any Support Groups? No attendance Current Outpatient Medications Medication Sig - propranolol ER (INDERAL LA) 60 mg 24 hr capsule Take 60 mg by mouth once daily. - pantoprazole DR (PROTONIX) 40 mg tablet Take 1 tablet by mouth once daily. - ursodiol (ACTIGALL) 300 mg capsule Take 1 capsule by mouth twice daily with meals. - topiramate (TOPAMAX) 25 mg tablet Take 2 tablets by mouth daily at bedtime. - OTEZLA 30 mg tablet Take 1 tablet by mouth twice daily. - SUMAtriptan (IMITREX) 50 mg tablet Take 1 tablet by mouth as needed. - MULTIVIT-MINERALS/FERROUS FUM (MULTI VITAMIN ORAL) Take by mouth once daily. No current facility-administered medications for this visit. REVIEW OF SYSTEMS: Denies nausea, vomiting, dumping syndrome, reactive hypoglycemia, gustatory rhinorrhea, Denies abdominal pain, constipation, diarrhea, melena, hematochezia, Denies paresthesias, gait abnormality, fatigue, weakness, lower extremity edema and Denies taking NSAIDs OBESITY MEDICINE COMORBIDITIES: Obstructive Sleep Apnea Sleep Apnea with use of CPAP, Bi-PAP, or similar technology PHYSICAL EXAM: Ht 190.5 cm (6' 3 ) Wt (!) 161 kg (355 lb) BMI 44.37 kg/m? General: AANDO, pleasant, NAD Respiratory: breathing non labored Neuro: no obvious deficit Assessment Abhay Mayes is a 35 year old gentleman with Class III obesity who presented today for 3 months. s/p LAPAROSCOPIC LONGITUDINAL GASTRECTOMY, GASTRIC RESTRICTIVE PROCEDURE, he is responding well 1. 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 Migraine without aura and without status migrainosus, not intractable - ICD9: 346.10, ICD10: G43.009 - continue TOPIRAMATE 50 MG TABLET, PCP is weaning off propranolol 3. Insulin resistance - ICD9: 277.7, ICD10: E88.81 - metformin d/c'd with surgery recheck labs at 6 mo follow up - HGB A1C - INSULIN ASSAY BLOOD DISPOSITION: Return 3 month to Post-op follow up/ individual office visit EDUCATION: Encouraged to continue with healthy lifestyle changes and incorporate cardiovascular and resistance training, Discussed weight loss expectations after bariatric and metabolic surgery, Advised PT to avoid NSAIDs, smoking tobacco given increased risk of marginal ulcers or Discussed importance of protein intake as per the RDN note REFERRALS: N/A LABS: Today: N/A Labs in 3 months - see above Elsa Genao [email or web address] I spent a total of 24 minutes on the date of the service which included preparing to see the patient, [id number] patient care, completing clinical documentation, obtaining and/or reviewing separately obtained history, performing a medically appropriate examination, counseling and educating the patient/family/caregiver and ordering medications, tests, or procedures. [facility] documented in this encounter [facility] Work Phone: Evaluation note* Diagnosis Acute otitis media, unspecified otitis media type- Primary documented in this encounter [facility] Work Phone: Evaluation note* Diagnosis Class 3 severe obesity due to excess calories with body mass index (BMI) of 45.0 to 49.9 in adult, unspecified whether serious comorbidity present (CMS/FORMERLY [facility])- Primary documented in this encounter [facility] Work Phone: History of Present illness Narrative* there are no concerns today. The patient's health since the last visit is described as fair. There are no interval changes in the patient's PMH, PSH, and current medications. There are no interval changes in the patient's social and family history. he has regular dental visits. he complains of vision problems. he has hearing loss. Immunizations status: not up to date. * Lifestyle: he does not have a healthy diet. he has weight concerns. he does not exercise regularly.he does not use tobacco. he consumes alcohol. physical job. * Metabolic screening: lipid profile performed within the past five years and glucose screening performed . * No acute concerns expressed. * Migraine: Takes sumatriptan as needed. Had a couple of episodes last year. Refill provided. * Follow-up in a year. Fasting labs to be done now to be able to fill the form for his insurance. [facility] Work Phone: Summary Purpose Family History Mother Name Dates Details No pertinent family history( V49.89, Z78.9) Status:Active Mother Name Dates Details No pertinent family history( V49.89, Z78.9) Status:Active Father Name Dates Details Family history of rheumatoid arthritis(V17.7, Z82.61) Status:Active Mother Name Dates Details No pertinent family history( V49.89, Z78.9) Status:Active Father Name Dates Details Family history of rheumatoid arthritis(V17.7, Z82.61) Status:Active Mother Name Dates Details No pertinent family history( V49.89, Z78.9) Status:Active Father Name Dates Details Family history of rheumatoid arthritis(V17.7, Z82.61) Status:Active Unknown Family Member Name Dates Details No pertinent family history: Mother(V49.89, Z78.9) Status:Active Family history of rheumatoid arthritis: Father(V17.7, Z82.61) Status:Active Unknown Family Member Name Dates Details No pertinent family history: Mother(V49.89, Z78.9) Status:Active Family history of rheumatoid arthritis: Father(V17.7, Z82.61) Status:Active Unknown Family Member Name Dates Details No pertinent family history: Mother(V49.89, Z78.9) Status:Active Family history of rheumatoid arthritis: Father(V17.7, Z82.61) Status:Active Advance Directives No Advanced Directives Records FoundNo Advanced Directives Records FoundNo Advanced Directives Records FoundNo Advanced Directives Records FoundNo Advanced Directives Records FoundNo Advanced Directives Records FoundNo Advanced Directives Records FoundNo Advanced Directives Records FoundNo Advanced Directives Records FoundNo Advanced Directives Records FoundNo Advanced Directives Records FoundNo Advanced Directives Records FoundNo Advanced Directives Records Found Chief Complaint getting headaches when exercising x1 week.annual physical, no concerns Additional Source Comments (unrecognized sect ion and content) No Status Records FoundNo Status Records FoundNo Status Records FoundNo Status Records FoundNo Status Records FoundNo Status Records FoundNo Status Records FoundNo Status Records FoundNo Status Records FoundNo Status Records FoundNo Status Records FoundNo Status Records FoundNo Status Records Found INFORMATION SOURCE (unrecogn ized section and content) DATE CREATED AUTHOR AUTHOR'S ORGANIZ ATION 2018 [facility] DATE CREATED AUTHOR AUTHOR'S ORGANIZ ATION 02/16/2018 [facility] DATE CREATED AUTHOR AUTHOR'S ORGANIZ ATION 03/05/2018 [facility] DATE CREATED AUTHOR AUTHOR'S ORGANIZ ATION 04/14/2018 [facility] DATE CREATED AUTHOR AUTHOR'S ORGANIZ ATION 11/29/2018 [facility] DATE CREATED AUTHOR AUTHOR'S ORGANIZ ATION 06/05/2020 [facility] DATE CREATED AUTHOR AUTHOR'S ORGANIZ ATION 09/26/2021 [facility] DATE CREATED AUTHOR AUTHOR'S ORGANIZ ATION 01/03/2022 [employer] DATE CREATED AUTHOR AUTHOR'S ORGANIZ ATION 01/08/2022 [facility] DATE CREATED AUTHOR AUTHOR'S ORGANIZ ATION 01/05/2023 [facility] DATE CREATED AUTHOR AUTHOR'S ORGANIZ ATION 01/05/2023 [facility] DATE CREATED AUTHOR AUTHOR'S ORGANIZ ATION 08/04/2023 [facility] Reason for Visit (unrecogniz ed section and content) Reason Comments Earache Right ear Reason Comments Weight Loss PT is here today for information on weight loss medication and would be interested in started on something. Pt reports he has tried to loose weight in the past, has also tried diet and working out in the past and reports it does not work. Reports he has followed an eating plan in the past after his weight loss surgery in 2019. Care Teams (unrecognized sec tion and content) Business Office Technician Relationship Specialty Start Date End Date Zeo Clancy MD MPH [address] [facility], [place] [address] PCP - General 11/29/20 Business Office Technician Relationship Specialty Start Date End Date Zoe Clancy MD MPH [address] [facility], [facility] [address] [place] [address] PCP - General 11/29/20 FOR RECORDS PERTAINING TO PATIENTS WHO ARE OR HAVE BEEN ENROLLED IN A CHEMICAL DEPENDENCY/SUBSTANCEABUSE PROGRAM, SOME INFORMATION MAY BE OMITTED. This clinical summary was aggregated from multiple sources. Caution should be exercised in using it in the provision of clinical care. This summary normalizes information from multiple sources, and as a consequence, information in this document may materially change the coding, format and clinical context of patient data. In addition, data may be omitted in some cases. CLINICAL DECISIONS SHOULD BE BASED ON THE PRIMARY CLINICAL RECORDS. [facility] [employer] [facility]. provides no warranty or guarantee of the accuracy or completeness of information in this document.
[2023-09-04 21:07] LABS: Hepatitis B Core Ab Total Negative (Negative); QNTFERON TB Mitogen Value > 10.00 IU/mL (.); QNTFERON TB Nil Value 0.01 IU/mL (.); QNTFERON TB1+ Ag Value 0 IU/mL (.); QNTFERON TB2+ Ag Value 0 IU/mL (.); QNTIFERON TB Positive Criteria Negative (Negative)
== END | disposition home or self-care (01) ==
LOC: MTLAB 16:04
PROVIDERS: PCP Family Medicine; Referring Provider Physician Assistant Medical; Visit Provider Physician Assistant Medical
DX: L40.0 Psoriasis vulgaris (principal); Z79.899 Other long term (current) drug therapy
CPT/HCPCS: 36415; 86480; 86704

== ENCOUNTER → 2025-07-13 | Outpatient (CLI) | payer OTHER, SELFPAY ==
[2025-07-17 07:08] LABS: QNTFERON TB Mitogen Value > 10.00 IU/mL (.); QNTFERON TB Nil Value 0.14 IU/mL (.); QNTFERON TB1+ Ag Value 0.06 IU/mL (.); QNTFERON TB2+ Ag Value 0.08 IU/mL (.); QNTIFERON TB Positive Criteria Negative (Negative)
== END | disposition home or self-care (01) ==
LOC: MTLAB 16:33
PROVIDERS: PCP Family Medicine; Referring Provider Physician Assistant; Visit Provider Physician Assistant
DX: L40.0 Psoriasis vulgaris (principal)
CPT/HCPCS: 36415; 86480